=== PATIENT | female | born 1940 | race Caucasian/White ===

== ENCOUNTER 2016-10-16 04:29 | Inpatient (IN) | payer MEDICARE, BC ==
[2016-10-16 06:12] LABS: Glucose,Whole Blood 150 mg/dL (75-99)
[2016-10-16] MEDS ORDERED: ACETAMINOPHEN TAB 325 MG TAB PO PRN (07:02)
[2016-10-16] MEDS ORDERED: SODIUM CHLORIDE 0.9% 1,000 ML IV SCH ×2 (07:15→14:00)
--- NOTE | 2016-10-16 07:34 | XR ---
EXAMINATION TYPE: XR chest 1V portable DATE OF EXAM: 10/16/2016 7:29 AM CLINICAL HISTORY: Difficulty breathing and pneumonia. TECHNIQUE: Single AP portable upright view of the chest is obtained. COMPARISON: Chest x-ray from July 27, 2014 FINDINGS: There is chronic emphysematous change without suspicious focal airspace opacity, pleural e ffusion, or pneumothorax seen bilaterally. There is stable mild cardiomegaly. Osseous structures are demineralized. IMPRESSION: Chronic emphysematous change and mild cardiomegaly without suspicious acute infiltrate
[2016-10-16] MEDS ORDERED: HUMAN PROTHROMBIN COMPLX 500 UNIT/16 ML VIAL IV ONE (07:57)
[2016-10-16 08:01] LABS: Basophils # (A) 0.1 k/uL (0-0.2); Basophils % (A) 0 %; CH 29.2; CHCM 32.7; Eosinophils % (A) 0 %; HCT 30.7 % (34.0-46.0); HDW 2.58; HGB 10.1 gm/dL (11.4-16.0); Luc # (Auto) 0.28; Luc % (Auto) 2; Lymphocytes # (A) 1.7 k/uL (1.0-4.8); Lymphocytes % (A) 10 %; MCH 29.5 pg (25.0-35.0); MCHC 32.8 g/dL (31.0-37.0); MCV 89.8 fL (80.0-100.0); Mean Platelet Volume 7.9; Monocytes # (A) 0.8 k/uL (0-1.0); Monocytes % (A) 5 %; Neutrophils # (A) 13.8 k/uL (1.3-7.7); Neutrophils % (A) 83 %; RBC 3.42 m/uL (3.80-5.40); RDW 13.5 % (11.5-15.5); WBC 16.7 k/uL (3.8-10.6); WBC (Perox) 17.07
[2016-10-16 08:10] LABS: INR 2.8 (<1.1); Prothrombin Time 26.9 sec (9.0-12.0)
[2016-10-16 08:32] LABS: ALT 24 U/L (9-52); AST 19 U/L (14-36); Alkaline Phosphatase 62 U/L (38-126); Anion Gap 11 mmol/L; Blood Urea Nitrogen 30 mg/dL (7-17); Calcium 9.2 mg/dL (8.4-10.2); Carbon Dioxide 26 mmol/L (22-30); Chloride 102 mmol/L (98-107); Glucose 137 mg/dL (74-99); Magnesium 2.4 mg/dL (1.6-2.3); Non-African American GFR(MDRD) 59 (>60 ml/min/1.73 sqM); Potassium 3.5 mmol/L (3.5-5.1); Sodium 139 mmol/L (137-145); Total Bilirubin 0.4 mg/dL (0.2-1.3); Total Protein 6.4 g/dL (6.3-8.2)
[2016-10-16 08:48] LABS: Creatine Kinase MB 1.1 ng/mL (0.0-2.4)
[2016-10-16 08:54] LABS: Troponin I 0.051 ng/mL (0.000-0.034)
[2016-10-16] MEDS ORDERED: NITROGLYCERIN SL TABS 0.4 MG TAB SUBLINGUAL PRN (09:28)
[2016-10-16] MEDS ORDERED: MORPHINE SULFATE 4 MG/ML SYRINGE IVP PRN (09:45)
[2016-10-16] MEDS ORDERED: ASPIRIN 81 MG CHEW PO STA (10:05)
[2016-10-16] MEDS ORDERED: DIGOXIN 62.5 MCG TAB PO ONE (10:05)
[2016-10-16] MEDS ORDERED: GABAPENTIN 300 MG CAP PO STA (10:06)
[2016-10-16] MEDS ORDERED: FAMOTIDINE 20 MG TAB PO STA (10:06)
[2016-10-16] MEDS ORDERED: LEVOTHYROXINE 100 MCG TAB PO ONE (10:09)
[2016-10-16] MEDS ORDERED: DIGOXIN 125 MCG TAB PO ONE (10:15)
[2016-10-16] MEDS ORDERED: ONDANSETRON 4 MG/2 ML VIAL ONE (13:48)
[2016-10-16 14:10] LABS: Glucose,Whole Blood 386 mg/dL (75-99)
[2016-10-16] MEDS ORDERED: NOREPINEPHRIN 4 MG-0.9% NS PMX 4 MG/250 ML ML IV ONE (14:12)
[2016-10-16 15:15] LABS: ABG Base Excess -5.3 mmol/L; ABG HCO3 19 mmol/L (21-25); ABG PCO2 32 mmHg (35-45); ABG PH 7.38 (7.35-7.45); ABG PO2 114 mmHg (83-108); ABG TCO2 20 mmol/L (19-24)
[2016-10-16] MEDS ORDERED: PROPOFOL 50 ML IV ONE ×2 (15:24→16:20)
[2016-10-16] MEDS ORDERED: EPINEPHrine 2 MG in DEXTROSE 5% IN WATER 250 ML IV SCH ×2 (15:30)
[2016-10-16 15:43] LABS: Basophils # (A) 0.1 k/uL (0-0.2); Basophils % (A) 0 %; CH 29.2; Eosinophils % (A) 0 %; HDW 2.66; Luc # (Auto) 0.27; Luc % (Auto) 2; Lymphocytes # (A) 2.4 k/uL (1.0-4.8); Lymphocytes % (A) 16 %; MCH 29.8 pg (25.0-35.0); MCHC 32.6 g/dL (31.0-37.0); MCV 91.6 fL (80.0-100.0); Mean Platelet Volume 8.7; Monocytes # (A) 0.9 k/uL (0-1.0); Monocytes % (A) 6 %; Neutrophils # (A) 11.1 k/uL (1.3-7.7); Neutrophils % (A) 75 %; RBC 2.05 m/uL (3.80-5.40); RDW 13.2 % (11.5-15.5); WBC 14.7 k/uL (3.8-10.6); WBC (Perox) 14.34
[2016-10-16 15:47] LABS: HCT 18.8 % (34.0-46.0); HGB 6.1 gm/dL (11.4-16.0)
[2016-10-16] MEDS ORDERED: EMPTY BAG 1 BAG with HUMAN PROTHROMBIN COMPLX 2,000 UNIT IV ONE (15:49)
[2016-10-16 15:52] LABS: Calcium 7.9 mg/dL (8.4-10.2); Potassium 3.9 mmol/L (3.5-5.1); Total Bilirubin 0.4 mg/dL (0.2-1.3); Total Protein 4.5 g/dL (6.3-8.2)
[2016-10-16 15:53] LABS: ABG Base Excess -13.1 mmol/L; ABG HCO3 12 mmol/L (21-25); ABG PCO2 25 mmHg (35-45); ABG PO2 217 mmHg (83-108); ABG TCO2 13 mmol/L (19-24)
[2016-10-16 15:55] LABS: Glucose,Whole Blood 490 mg/dL (75-99)
[2016-10-16] MEDS ORDERED: NALOXONE 0.4 MG/ML 1 ML VIAL IV PRN (15:59)
[2016-10-16 16:08] LABS: Creatine Kinase MB 1.5 ng/mL (0.0-2.4)
[2016-10-16 16:12] LABS: Troponin I 0.177 ng/mL (0.000-0.034)
[2016-10-16] MEDS ORDERED: RX INFO: IV CONTRAST WAS GIVEN 1 EACH MISC MISCELLANE PRN (16:14)
[2016-10-16] MEDS ORDERED: NOREPINEPHRIN 16 MG-0.9%NS PMX 16 MG/250 ML ML IV SCH (16:30)
[2016-10-16] MEDS ORDERED: HUMAN PROTHROMBIN COMPLX IV ONE (16:30)
[2016-10-16] MEDS ORDERED: PIPERACILLIN-TAZOBACTAM 3.375 GM in DEXTROSE/WATER 1 50ML.BAG IVPB SCH (16:30)
--- NOTE | 2016-10-16 16:30 | XR ---
EXAMINATION TYPE: XR chest 1V portable DATE OF EXAM: 10/16/2016 4:06 PM Comparison: 10/16/2016 Clinical History: 76-year-old female copd, pulmonary nodules Findings: Markedly rightward rotated exam limiting evaluation casting increased density over the right hemithor ax. Heart appears normal size. Relative upper lung lucency suggests underlying emphysema. No definite consolidation or significant pleural effusion. Impression: COPD. Limited rotated exam. No definite acute change.
[2016-10-16] MEDS: IPRATROPIUM-ALBUTEROL 3 ML NEB INHALATION SCH ×3 (16:31→23:40)
--- NOTE | 2016-10-16 16:36 | P.CNPUL ---
History of Present Illness Consult date: 10/16/16 Chief complaint: Shock History of present illness: I was asked to immediately attended on this patient by the hospitalist because of episodes of loss of consciousness, hypotension and shock. This patient is 76 and she was admitted initially to [facility] for an acute COPD exacerbation. She was receiving treatment there for the same. Subsequently, a computed tomography scan of the chest was done that showed and the raises suspicion for a liver mass and for that reason the patient was admitted to [facility]. Initially she was brought into the ICU as a selective overflow. She was under the care of the hospitalist. Later on this afternoon the patient started having episodes of profound hypotension with her systolic blood pressure will drop down to the 40s and she become briefly unconscious. At the time of my evaluation, the patient was quite hypotensive with a systolic blood pressure in the mid 70s. Immediately a triple lumen catheter was established in the right femoral vein and the patient was started on IV fluids and pressors. As the suspicion was being conducted, the patient had another episode where she massively dropped her blood pressure down to the mid 40s and she became unresponsive. Immediately, epinephrine 1 mg was injected and the blood pressure was restored along with the circulation the pulse. However she would subsequently dropped her systolic blood pressure to the mid 40s again. The effect of his medication would last only for a few minutes and then resolved. At that point, the patient was started on epinephrine drip in conjunction with norepinephrine infusion and bolus infusions of currently running at 50 mics. A rapid stat CBC showed a 4 g drop in hemoglobin and the most his hemoglobin is down to 6.1. Kcentra was ordered regarding the coagulopathy to reverse her INR immediately that was at 2.8. A stat blood gases obtained that showed a mild metabolic acidosis with a pH of 7.3 with a pCO2 of 25 and pO2 of 217 and this blood gases were done as the patient was intubated on a assist-control mode of ventilation at the rate of 24, tidal volume 500, FiO2 100% and a PEEP of 5. Patient's lactic acid level came up to 6.0. NG tube was inserted and there was no evidence of any bleeding. In addition the patient did not show any signs of active bleed. Abdomen was nondistended. Noted prior to all these events occurring she was complaining of right upper quadrant pain . During this is a station there was no abdominal distention noted. A postintubation chest x-ray showed evidence of any free air under the diaphragm. Flat some of the abdomen showed no specific gas pattern. The patient had normal amylase lipase and normal liver function tests. There was evidence of a minor troponin leak that was noted which is not significant and not pertinent to the ongoing events. The CAT scan of the chest that was done at [facility] showed a questionable right upper quadrant mass/hepatic mass/ pancreatic mass. Possibility of abscess or a perforated viscus is being currently contemplated. The patient is postcholecystectomy. She is post appendectomy. Oma was updated regarding the above-mentioned events. Note that the patient also has had a previous abdominal aortic aneurysm that has been repaired many years back by Dr. Tineo and she has many issues since. Review of Systems ROS unobtainable: due to endotracheal tube Past Medical History Past Medical History: Coronary Artery Disease (CAD), COPD, GERD/Reflux, Hyperlipidemia, Hypertension, Thyroid Disorder Additional Past Medical History / Comment(s): COPD, coronary artery disease, abdominal aortic aneurysm repair, breast cancer with previous right mastectomy followed by radiation therapy and thousand and 6, chronic atrial fibrillation maintained on long-term anticoagulation with warfarin, macular degeneration, chronic sinus disease, hypothyroidism, hyperlipidemia, acid reflux, hypertension History of Any Multi-Drug Resistant Organisms: None Reported Past Surgical History: Cholecystectomy, Hysterectomy, Tubal Ligation Additional Past Surgical History / Comment(s): triple A repair 2007, Right breast lumpectomy, repair bowel obstruction Past Anesthesia/Blood Transfusion Reactions: No Reported Reaction Past Psychological History: No Psychological Hx Reported Smoking Status: Former smoker Past Alcohol Use History: None Reported Past Drug Use History: None Reported Medications and Allergies Home Medications Medication Instructions Recorded Confirmed Type Furosemide [Lasix] 40 mg PO DAILY 07/27/14 10/16/16 History Gabapentin [Neurontin] 300 mg PO TID 07/27/14 10/16/16 History Levothyroxine Sodium [Synthroid] 100 mcg PO DAILY 07/27/14 10/16/16 History Potassium Chloride [Klor-Con 10] 10 meq PO DAILY 07/27/14 10/16/16 History Simvastatin [Zocor] 40 mg PO HS 07/27/14 10/16/16 History amLODIPine [Norvasc] 5 mg PO HS 07/27/14 10/16/16 History Aspirin 81 mg PO DAILY 10/16/16 10/16/16 History Calcium Carbonate/Vitamin D3 1 tab PO TID 10/16/16 10/16/16 History [Calcium 500-Vit D3 600 Tablet] Digoxin [Lanoxin] 62.5 mcg PO DAILY 10/16/16 10/16/16 History Fluticasone Propionate [Flonase 1 spray EA NOSTRIL DAILY 10/16/16 10/16/16 History Allergy Relief] Losartan [Cozaar] 50 mg PO DAILY 10/16/16 10/16/16 History Magnesium Chloride [Slow Mag] 128 mg PO DAILY 10/16/16 10/16/16 History Nitroglycerin Sl Tabs [Nitrostat] 0.4 mg SUBLINGUAL Q5M PRN 10/16/16 10/16/16 History [place]-3 Fatty Acids/Fish Oil [Fish 1 cap PO BID 10/16/16 10/16/16 History Oil 1,000 mg Softgel] Ranitidine HCl 150 mg PO DAILY 10/16/16 10/16/16 History Vit A,C & E/Lutein/Minerals 1 tab PO BID 10/16/16 10/16/16 History [Ocuvite with Lutein Tablet] Warfarin Sodium [Coumadin] 4 mg PO MOWEFRSA 10/16/16 10/16/16 History Warfarin Sodium [Coumadin] 6 mg PO SUTUTH 10/16/16 10/16/16 History Allergies Allergy/AdvReac Type Severity Reaction Status Date / Time diltiazem [From [facility]] Allergy Unknown Verified 10/16/16 08:04 Physical Exam Vitals: Vital Signs Temp Pulse Pulse Resp BP BP Pulse Ox 10/16/16 12:00 81 17 10/16/16 08:00 98.2 F 76 81 17 140/68 96 10/16/16 06:46 97.7 F 81 25 H 105/73 93 L 10/16/16 05:58 105/73 Intake and Output 10/16/16 10/16/16 10/16/16 06:59 14:59 22:59 Other: Voiding Method Bedside Commode Bedside Commode Weight 82.6 kg Intubated on a mechanical ventilator and calm and comfortable. Nonacute distress.Head exam was generally normal. There was no scleral icterus or corneal arcus. Mucous membranes were moist.Neck was supple and without jugular venous distension, thyromegaly, or carotid bruits. Carotids were easily palpable bilaterally. There was no adenopathy. Patient has an orogastric and orotracheal tube are both in place. Lung sounds are diminished bilaterally otherwise clear. No wheezes or rhonchi any crackles.Cardiac exam revealed the PMI to be normally situated and sized. The rhythm was regular and no extrasystoles were noted during several minutes of auscultation. The first and second heart sounds were normal and physiologic splitting of the second heart sound was noted. There were no murmurs, rubs, clicks, or gallops. Preintubation the patient had a right upper quadrant direct tenderness. At this point in time bowel sounds are hypoactive. No abdominal distention. No hepatosplenomegaly. No rebound tenderness. No guarding. Extremities show no edema and there is diminished pulses in all 4 extremities symmetrically the extremities are cold and clammy.. No cyanosis. No clubbing. Neurologically, the patient sedated and calm and comfortable. Results - Laboratory Findings CBC and BMP: 10/16/16 15:15 10/16/16 15:15 ABG ABG pH 7.30 (7.35-7.45) L 10/16/16 15:45 ABG pCO2 25 mmHg (35-45) L 10/16/16 15:45 ABG pO2 217 mmHg (83-108) H 10/16/16 15:45 ABG O2 Saturation 100.0 % (94-97) H 10/16/16 15:45 PT/INR, D-dimer PT 26.9 sec (9.0-12.0) H 10/16/16 07:41 INR 2.8 (<1.1) 10/16/16 07:41 Abnormal lab findings: Abnormal Labs 10/16/16 10/16/16 10/16/16 06:10 07:41 07:41 WBC 16.7 H RBC 3.42 L Hgb 10.1 L Hct 30.7 L Neutrophils # 13.8 H PT 26.9 H ABG pH ABG pCO2 ABG pO2 ABG HCO3 ABG Total CO2 ABG O2 Saturation ABG Lactic Acid Sodium Carbon Dioxide BUN Creatinine Glucose POC Glucose (mg/dL) 150 H Calcium Magnesium Troponin I Total Protein Albumin 10/16/16 10/16/16 10/16/16 07:41 07:41 14:04 WBC RBC Hgb Hct Neutrophils # PT ABG pH ABG pCO2 ABG pO2 ABG HCO3 ABG Total CO2 ABG O2 Saturation ABG Lactic Acid Sodium Carbon Dioxide BUN 30 H Creatinine Glucose 137 H POC Glucose (mg/dL) 386 H Calcium Magnesium 2.4 H Troponin I 0.051 H* Total Protein Albumin 10/16/16 10/16/16 10/16/16 15:08 15:15 15:15 WBC 14.7 H RBC 2.05 L Hgb 6.1 L* D Hct 18.8 L* Neutrophils # 11.1 H PT ABG pH ABG pCO2 32 L ABG pO2 114 H ABG HCO3 19 L ABG Total CO2 ABG O2 Saturation 99.0 H ABG Lactic Acid Sodium Carbon Dioxide BUN Creatinine Glucose POC Glucose (mg/dL) Calcium Magnesium Troponin I 0.177 H* Total Protein Albumin 10/16/16 10/16/16 10/16/16 15:15 15:15 15:45 WBC RBC Hgb Hct Neutrophils # PT ABG pH 7.30 L ABG pCO2 25 L ABG pO2 217 H ABG HCO3 12 L ABG Total CO2 13 L ABG O2 Saturation 100.0 H ABG Lactic Acid 6.0 H* Sodium 136 L Carbon Dioxide 20 L BUN 28 H Creatinine 1.15 H Glucose 351 H POC Glucose (mg/dL) Calcium 7.9 L Magnesium Troponin I Total Protein 4.5 L Albumin 2.3 L 10/16/16 15:52 WBC RBC Hgb Hct Neutrophils # PT ABG pH ABG pCO2 ABG pO2 ABG HCO3 ABG Total CO2 ABG O2 Saturation ABG Lactic Acid Sodium Carbon Dioxide BUN Creatinine Glucose POC Glucose (mg/dL) 490 H Calcium Magnesium Troponin I Total Protein Albumin - Diagnostic Findings Chest x-ray: image reviewed Assessment and Plan Plan: Assessment 1 acute shock with massive hemodynamic collapse. The exact etiology is not clear. Rule out perforated viscus/intra-abdominal source of sepsis. Rule out abdominal aortic aneurysm complication including dissection special with a 4 g drop in hemoglobin. Noted the patient was having right upper quadrant pain prior to her going into shock phase and the CAT scan of the chest that was done at [facility] showed right upper quadrant abnormalities, questionable liver mass versus pancreatic mass. This could've been also an inflammatory collection/abscess. A stat ultrasound of the abdomen was done at the bedside showed free fluid within the abdomen and the visibility was essentially not clear. 2 acute respiratory failure secondary to above 3 acute anemia with drop in hemoglobin 4 sinus tachycardia secondary to above 5 paroxysmal atrial fibrillation maintained on long-term articulation with Coumadin with the most recent INR 2.8 6 lactic acidosis 7COPD 8 coronary artery disease with minor troponin leak, nonspecific 9 about it and resume. 10 breast cancer with previous mastectomy followed by radiation therapy in 2005 11 macular degeneration 12 hypothyroidism 13 hyperlipidemia 14 acid reflux Plan Unfortunately because of the massive hemodynamic collapse and shock state is not clear to me. I think we are either dealing with a either a hypovolemic shock probably due to blood loss/complications of aneurysm of the abdominal aorta, or complications of sepsis, bowel perforation, intra-abdominal abscess formation. As such, the patient will be assisted aggressively with IV fluids and she is on wide-open saline infusion right now and she'll be receiving packed RBC transfusion and the coagulopathy will be reversed. The patient will be sent for a stat CAT scan of the chest abdomen and pelvis. The patient will be kept intubated on mechanical ventilator and the pressors will be used to support hemodynamics and the patient is currently on a combination of epinephrine and norepinephrine infusion. Cover the patient with IV Zosyn. Continue vent support. Condition is critical. Consult with general surgery. We'll make further recommendations based on the CAT scan findings. Time with Patient: Greater than 30
--- NOTE | 2016-10-16 16:39 | XR ---
EXAMINATION TYPE: XR abdomen 1V DATE OF EXAM: 10/16/2016 4:14 PM CLINICAL DATA: 76-year-old female post intubation, possible bleed, [facility] COMPARISON: None FINDINGS: An NG tube courses below the diaphragm. Cholecystectomy clips are present. Surgical clips within the pelvis. There is focal cecal dilatation of 10.6 cm in the right lower quadrant. Scattered air seen wi thin the colon distally into the rectum. IMPRESSION: Nonspecific air distention of the cecum measuring 10.6 cm. Follow-up recommended. NG tube is down in the stomach.
[2016-10-16] MEDS: PROPOFOL 500 MG in EMPTY BAG 1 BAG IV SCH ×2 (16:43→20:23)
--- NOTE | 2016-10-16 16:51 | US ---
EXAMINATION TYPE: US duplex aorta DATE OF EXAM: 10/16/2016 4:21 PM COMPARISON: NONE CLINICAL HISTORY: 76-year-old female AAA. History of aortic repair 2007. Patient coded twice. TECHNIQUE: Multiple sonographic images of the abdominal aorta are obtained. FINDINGS: RATE EXAMINER NOTES: Limited exam due to overlying bowel gas. Moderate amount of fluid seen in pelvis . EXAM MEASUREMENTS: Abdominal Aorta: Proximal: 2.5 x 2.4 cm Mid: not seen due to overlying bowel gas Distal: not seen due to overlying bowel gas Bifurcation: not seen due to overlying bowel gas IMPRESSION: Limited exam. Only the upper abdominal aorta is visible, ectatic at 2.5 cm. There is moderate free fl uid seen within the pelvis. Clinical correlation recommended.
--- NOTE | 2016-10-16 16:59 | XR ---
EXAMINATION TYPE: XR chest 1V portable DATE OF EXAM: 10/16/2016 4:14 PM Comparison: Earlier today Clinical History: 76 year-old female tube placement Findings: The janice is not well seen. ET tube tip is estimated at 2 cm from the janice. NG tube courses below the diaphragm. Heart remains upper limits of normal in size. Underlying emphysematous change. No new consolidation, pneumothorax, or pleural effusion identified. Impression: 1. ET tube tip estimated at 2 cm from the janice. The janice is not well seen. Attention on follow-up . 2. No definite acute cardiopulmonary process. Mild underlying emphysema.
[2016-10-16] MEDS ORDERED: EPINEPHrine 4 MG in DEXTROSE 5% IN WATER 250 ML IV SCH ×4 (17:07→18:00)
--- NOTE | 2016-10-16 17:24 | PCN ---
DATE OF PROCEDURE: PREOPERATIVE DIAGNOSIS: Shock. POSTOPERATIVE DIAGNOSIS: Shock. PROCEDURE PERFORMED: Intubation. ENDOTRACHEAL INTUBATION Indication: Respiratory compromise. A time-out was completed verifying correct patient, procedure, site, positioning, and implant(s) or special equipment if applicable. The patient was positioned appropriately and a #8 endotracheal tube was placed under direct laryngoscopy. The tube was anchored at 22 cm at the teeth. Correct placement was confirmed by presence of bilateral breath sounds without air sounds in the abdomen on auscultation. An end-tidal CO2 monitor was also used to confirm tracheal placement of the ET tube. A chest x-ray was ordered to assess for pneumothorax and verify endotracheal tube placement. The patient tolerated the procedure well and there were no complications. #4 Read blade was used to intubate the patient. No bedside complications or bleeding.
--- NOTE | 2016-10-16 17:26 | PCN ---
DATE OF PROCEDURE: TRIPLE LUMEN CATHETER PLACEMENT Indication: Hemodynamic monitoring/Intravenous access. A time-out was completed verifying correct patient, procedure, site, positioning, and implant(s) or special equipment if applicable. The patient was placed in a dependent position appropriate for triple lumen catheter placement based on the vein to be cannulated. The patient's right groin was prepped and draped in sterile fashion. 1% Lidocaine was used to anesthetize the surrounding skin area. A triple lumen 9F Cordis catheter was introduced into the common femoral vein using Seldinger technique. The catheter was threaded smoothly over the guide wire and appropriate blood return was obtained. Each lumen of the catheter was evacuated of air and flushed with sterile saline. The catheter was then sutured in place to the skin and a sterile dressing applied. Perfusion to the extremity distal to the point of catheter insertion was checked and found to be adequate. No bedside complications or bleeding.
--- NOTE | 2016-10-16 17:28 | PCN ---
DATE OF PROCEDURE: ARTERIAL LINE PLACEMENT Indication: Hemodynamic monitoring. A time-out was completed verifying correct patient, procedure, site, positioning, and implant(s) or special equipment if applicable. Yousif's test was performed to ensure adequate perfusion. The patient's right wrist was prepped and draped in sterile fashion. 1% Lidocaine was used to anesthetize the area. An 18G Arrow arterial line was introduced into the radial artery. The catheter was threaded over the guide wire and the needle was removed with appropriate pulsatile blood return. Blood loss was minimal. The catheter was then sutured in place to the skin and a sterile dressing applied. Perfusion to the extremity distal to the point of catheter insertion was checked and found to be adequate. The patient tolerated the procedure well and there were no complications. No bedside complications or bleeding.
[2016-10-16] MEDS ORDERED: WARFARIN 3 MG TAB PO SCH (18:00)
--- NOTE | 2016-10-16 18:09 | HP ---
DATE OF ADMISSION: 10/16/2016 There are multiple events that happened since her admission today morning in transfer from [facility] which patient was initially sent in here for evaluation by cardiology because of minimally elevated troponin 0.05 and patient was being treated for COPD exacerbation there and the patient chest x-rays and CTs were reviewed from the other hospital. Patient initially was there what appears to be for three or four days. Patient had leukocytosis there and patient was being treated for community acquired pneumonia with ceftriaxone and azithromycin, although patient's chest x-ray showed some atelectasis. No significant pneumonic infiltrate although it was read as there may be aspiration pneumonia and the patient on systemic steroids, inhalational treatments and patient is also on Coumadin for atrial fibrillation. He is on Coumadin and the patient INR is 2.8 today when she came in. Patient was doing clinically okay except for her complaints of epigastric abdominal pain and right upper quadrant abdominal pain. Patient had a CT angiogram of the chest yesterday which was suspicious for pulmonary nodule which is not apparent as per sales clerk here. Patient has a suspicious mass in the which is not very obvious because it is a CT of the chest in the liver area. My plan is to get a CT of the abdomen tomorrow. Those orders were placed when I the left the room. Shortly after I left the room, patient complained about pain in the clavicle area and the patient all of a sudden became unresponsive with normal pulse temporarily and was awake after that and patient did not undergo cardiopulmonary resuscitation. Patient has a pulse at that time and patient was sinus rhythm. Subsequently, patient sinus rhythm converted to sinus tachycardia. Almost about an hour later patient became unresponsive, systolic blood pressure dropped down to 60s. Patient was emergently intubated and IV central access was obtained and the patient arterial line was placed. Blood pressure dropped down to 40s and patient was maximized on Levophed and epinephrine, norepinephrine and epinephrine. No obvious etiology for these events although it was found the patient has abdominal aortic aneurysm, which was repaired years ago. The patient was later found to have 4 gm drop in hemoglobin. Suspicion was intra-abdominal bleed. ( ) was given. We got an emergent ultrasound of the abdomen which showed free fluid in the pelvis. INR was 2.8. Leukocytosis improved with repeat labs, although her lactic acid jumped up to 6 with worsening creatinine and patient received so far 5 liters of aggressive liter saturation. Patient is still undergoing aggressive resuscitation and aggressive fluid resuscitation and we are trying to get an emergent CT of the abdomen and of the chest. Patient is fairly relatively stabilized now because of which we are going to get a CT of the abdomen to see if that is any abdominal intra-abdominal bleed or abdominal aortic aneurysmal rupture for further management. Case was discussed with the surgeon as well. Patient was empirically started on Zosyn. PAST MEDICAL HISTORY: Coronary artery disease, COPD, gastroesophageal reflux disease, hyperlipidemia, hypertension, hyperthyroidism, cholecystectomy, hysterectomy, tubal ligation surgery. SOCIAL HISTORY: Former smoker. Denied any alcohol abuse or drug abuse. FAMILY HISTORY: Not available and not relevant at this point in time. Medications include: 1. Lasix. 2. Gabapentin. 3. Levothyroxine. 4. Potassium chloride. 5. Simvastatin. 6. Amlodipine. 7. Aspirin. 8. Calcium carbonate. 9. Digoxin. 10. Fluticasone. 11. Losartan. All of which are being held now because of these acute events. Software Test Manager tried to evaluate the patient in the meantime. He did not get a chance because of these multiple acute events. As of now we will go ahead and discontinue Cardiology consult. Troponin is elevated due to demand ischemia and significant hemoglobin drop. All these events were discussed extensively with the family members. REVIEW OF SYSTEMS: Unable to obtain and initially when I obtained review of systems, there were are all negative. PHYSICAL EXAMINATION: Temperature 98.2, pulse of 76, respiratory rate of 17. Blood pressure 140/68, saturating at 96% on 2 liters O2 by nasal cannula. Patient did do multiple physical examinations during the course of these events. Initially physical exam: GENERAL: The patient is alert and oriented x3, not in any acute distress. Well developed, well nourished. HEENT: Pupils are round and equally reacting to light. EOMI. No scleral icterus. No conjunctival pallor. Normocephalic, atraumatic. No pharyngeal erythema. No thyromegaly. CARDIOVASCULAR: S1 and S2 present. No murmurs, rubs, or gallops. PULMONARY: Patient has mildly decreased air entry into bilateral lung vargas. No other abnormality was appreciated. Patient was only on 2 liters of oxygen when she came in here. Saturating 96% now. Patient looked significantly pale. Patient is quite tachycardic on exam. No JVD. Patient is sedated, on propofol and intubated, sedated, now. Please refer to sales clerk dictation for vent settings. ABDOMEN: Soft, nontender, nondistended, normoactive bowel sounds. No palpable organomegaly. MUSCULOSKELETAL: No joint swelling or deformity. EXTREMITIES: No cyanosis, clubbing, or pedal edema. NEUROLOGICAL: Gross neurological examination did not reveal any focal deficits. SKIN: No rashes. Patient's ABG showed pH of 7.3, PCO2 25. Patient has metabolic acidosis with partial compensation of from respiratory alkalosis. Patient is going for a CT of the abdomen. Other lab data as mentioned above. ASSESSMENT AND PLAN: 1. Acute shock appears to be hypovolemic shock although sepsis cannot be ruled out. Patient will be on empiric antibiotics. Patient has a significant drop in hemoglobin, aggressive IV fluid resuscitation. We will go ahead and given her at least 2 units of blood transfusion. Patient may require more and emergent CT of the abdomen is being obtained and surgical services notified, the etiology, the patient is undergoing further evaluation to find etiology about this acute hemodynamic collapse or hemorrhagic shock. 2. Acute hypoxic respiratory failure secondary to shock; significant drop in hemoglobin or acute blood loss anemia, further evaluation as mentioned above. 3. Coumadin coagulopathy. 4. Paroxysmal atrial fibrillation. 5. Lactic acidosis due to shock. 6. Coronary artery disease. 7. Elevated troponin secondary to demand ischemia. 8. Breast cancer with previous mastectomy. 9. Hypothyroidism. 10. Hyperlipidemia. PLAN: As mentioned above. Patient has massive hemodynamic collapse. So far, I spent more than 120 minutes still at the bedside in further managing the patient. Update will be redictated as a progress note. MTDD
--- NOTE | 2016-10-16 18:48 | CT ---
EXAMINATION TYPE: CT angio thoracic/abd aorta DATE OF EXAM: 10/16/2016 5:58 PM COMPARISON: Correlation outside CT chest 10/15/2016 HISTORY: 76-year-old female rule out abdominal aortic aneurysm rupture. TECHNIQUE: Contiguous axial scanning of the chest, abdomen, and pelvis performed before and after adm inistration of 80 mL Visipaque 320 IV contrast. Coronal and sagittal MIP reconstructions performed. 3 -D reconstructions generated on a dedicated independent workstation. CT DLP: 2156.5 mGycm Automated exposure control for dose reduction was used. FINDINGS: VASCULATURE: Ascending aorta is normal caliber. There are mild atherosclerotic arch calcifications and conventiona l branching anatomy. There is borderline ectasia of the upper descending thoracic aorta 3.0 cm with scattered moderate ath erosclerotic plaque and calcifications. There is ectasia of the lower descending thoracic aorta at 2. 9 cm. No evidence for acute intramural hematoma. There is moderate hemoperitoneum with combination of low and high density ascites around the liver an d spleen. The suspected origin of hemorrhage is a 1.7 x 1.2 cm pseudoaneurysm at the level of the pro per hepatic artery bifurcation, axial image 54 and coronal medic image 19. There is apparent narrowing of the proximal common hepatic artery, axial image 52 of uncertain etiolo gy. There is high density hemorrhagic fluid in the region of the tammy hepatis. There is prior stent graft of AAA. The algaaciq sac measures 3.3 cm without any evidence for leak. Ectasia of 1.5 cm of the right common iliac artery with moderate atherosclerotic calcifications. Moderate hemorrhagic ascites collects within the pelvis. CHEST: ET tube and NG tube are present. The heart is normal size without pericardial effusion. Coronary vessel calcifications are present in remarkable for coronary artery disease. There is borderline to enlarged caliber of the right and left main pulmonary arteries at 2.5 and 2.8 cm, relatively, suggesting underlying pulmonary arterial hypertension. No thoracic lymphadenopathy. Evaluation of the lungs shows biapical pleural-parenchymal scarring and some additional scattered str augusto atelectasis and scarring. Mild diffuse bronchial wall thickening is noted. Some patchy interstit ial changes at the right base could reflect additional scarring. No fabio consolidation or pleural ef fusion. There is a 1.5 cm pulmonary nodule at the right infrahilar region, axial image 24 which should be anupama ssessed on follow-up. ABDOMEN: Cholecystectomy clips. Adrenal glands and right kidney appear within normal limits. There is a subcentimeter hypodensity upp er pole left kidney likely cyst. Hemorrhagic fluid surrounds portions of the pancreas limiting its ev aluation and also makes clear assessment of the spleen difficult. No mesenteric or retroperitoneal lymphadenopathy. Martines catheter decompresses the bladder. BONES: Degenerative changes at the hips and levoconvex degenerative scoliosis. IMPRESSION: 1. MODERATE HEMORRHAGIC ASCITES WITH MIXED DENSITY HEMORRHAGIC FLUID INCLUDING ACUTE HEMORRHAGE. THIS IS SIGNIFICANTLY INCREASED FROM THE OUTSIDE CT OF 10/15/2016. 2. 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 NOTE APPARENT NARROWING OF THE PROXIMAL COMMON HEPATIC ARTERY; THE RE MAY BE SPASM OR STRICTURE HERE. 3. PRIOR STENT GRAFTING OF PATIENT'S AAA. THE POARCH SAC MEASURES 3.3 CM WITHOUT LEAK. 4. A 1.5 CM RIGHT INFRAHILAR PULMONARY NODULE. RECOMMEND 3 MONTH FOLLOW-UP EXAM TO REASSESS AND EXCLU DE NEOPLASM. Critical findings called to nurse Puga on 6-ICU at 6:30 PM following immediately by phone call to Dr. Mcdermott.
[2016-10-16] MEDS ORDERED: PHYTONADIONE 5 MG in SODIUM CHLORIDE 0.9% 50 ML IVPB STA (19:00)
[2016-10-16 19:31] VITALS: BP 75/44; RESP 24; TEMP 97.4
--- NOTE | 2016-10-16 20:12 | DS ---
DATE OF ADMISSION: 10/16/2016 DATE OF DISCHARGE: Please refer to my dictation of H&P for further details of hospital course. This is the discharge summary. the patient is being transferred to [facility] for further management and higher level of care. Patient will be air lifted for that. The patient today had hemodynamic stability and hemorrhagic shock. Once she stabilized, we were able to get CT of the abdomen which showed moderate hemorrhagic ascites ( ) hemorrhagic fluid including acute hemorrhage along with 1.7 x 1.2 cm pseudoaneurysm in the distal ( ) hepatic artery near its bifurcation at Portahepatus. There was also prior abdominal aortic aneurysm which is stable at this point of time where there is a stent grafting. Patient will be further hemodynamically further stabilized and the patient received ( ) and the patient will be given fresh frozen plasma along with Vitmain K, two more units of ( ) transfusion totaling 4 units of blood transfusion before we air lift her to [facility]. Discussed with surgical ICU attending who will accept the patient is surgical ICU, with vascular surgery and internal medicine consult. For further details of hospital course management, please refer to my dictation of H&P.
[2016-10-16] MEDS: GABAPENTIN 300 MG CAP PO SCH ×2 (20:23→22:50)
[2016-10-16] MEDS ORDERED: amLODIPine 5 MG TAB PO SCH (21:00)
[2016-10-16] MEDS ORDERED: AMOXIC-POT CLAV 875-125MG 1 EACH TAB PO SCH (21:00)
[2016-10-16] MEDS ORDERED: PANTOPRAZOLE 40 MG/10 ML VIAL IVP SCH (21:00)
[2016-10-16] MEDS ORDERED: ATORVASTATIN 20 MG TAB PO SCH (21:00)
[2016-10-16] MEDS ORDERED: CHLORHEXIDINE GLUCONATE 15 ML CUP MUCOUS MEM SCH (21:00)
[2016-10-16 23:17] VITALS: PULSE 81
[2016-10-17] MEDS ORDERED: LEVOTHYROXINE 100 MCG TAB PO SCH (06:30)
[2016-10-17] MEDS ORDERED: ASPIRIN 81 MG CHEW PO SCH (09:00)
[2016-10-17] MEDS ORDERED: PANTOPRAZOLE 40 MG/10 ML VIAL IVP SCH (09:00)
[2016-10-17] MEDS ORDERED: FLUTICASONE 50MCG/SPRAY NASAL 16GM EA NOSTRIL SCH (09:00)
[2016-10-17] MEDS ORDERED: FAMOTIDINE 20 MG TAB PO SCH (09:00)
[2016-10-17] MEDS ORDERED: LOSARTAN 50 MG TAB PO SCH (09:00)
[2016-10-17] MEDS ORDERED: predniSONE 20 MG TAB PO SCH (09:00)
[2016-10-17] MEDS ORDERED: DIGOXIN 62.5 MCG TAB PO SCH (09:00)
[2016-10-17] MEDS ORDERED: WARFARIN 2 MG TAB PO SCH (18:00)
--- NOTE | 2016-10-20 10:12 | CDI ---
In responding to this query, please exercise your independent professional judgment. The [facility] Coding Staff and Clinical Documentation Specialists appreciate your assistance in clarifying documentation, maintaining compliance with coding guidelines, accurately documenting patients condition and capturing severity of illness. The fact that a question is asked does not imply that any particular answer is desired or expected. Communication forms are a method of clarifying documentation and are not made part of the Legal Health Record. Thank you in advance for your clarification. Last Revision, August 2015 Moises Barnes [address] [place] [address] Documentation Clarification Form Date: 10/20/2016 9:42:00 AM From: Magaly Freeman [facility] & Gris Suarez, Evaluation Advisor & Deborahs = [phone] Admit Date: 10/16/2016 5:55:00 AM Patient Name: Kanchan Harvey Visit Number: [id number] Discharge Date: 10-17-16 Dr. Alicia Bolaños Please advise if possible, the specificity of acute respiratory failure in this patient. H&P states "acute respiratory failure". History/Risk Factors: History of AAA, repaired. Now hemorrhagic shock, hemorrhagic ascites, pseudoaneurysm of distal hepatic artery, history of atrial fib, acute blood loss anemia, coumadin coagulopathy, demand ischemia, respiratory alkalosis, metabolic and lactic acidosis. Tobacco use: History of Home oxygen: no Vital signs/Pulse oximetry: 93% Lung/Breathing assessment: Respiratory rate up to 33 on 10-16-16 ABG done at 1508 on 10-16-16: pH 7.38 pCO2 32 pHCO3 19 Lactate 6.0 Treatment: nebulizer treated-yes Continuous Pulse ox--O2 sat 93. Vent/BiPap: intubated at 1545. In your professional opinion, can you please clarify if these findings signify one of the following conditions? Acuity: o Acute o Chronic o Acute on Chronic Respiratory Status: o Respiratory failure o Respiratory failure with hypercapnia o Respiratory failure with hypoxia o Acute Respiratory Distress o Other Diagnosis, please specify o Unable to determine Please document in your progress notes and discharge summary in order to capture severity of illness and risk of mortality. Include clinical findings that support your diagnosis. FYI: Press F11 to launch patient chart. Place X here if this finding has no clinical significance, is not applicable or if you are not able to provide any additional documentation. MTDD
--- NOTE | 2016-10-20 10:27 | CDI ---
In responding to this query, please exercise your independent professional judgment. The [facility] Coding Staff and Clinical Documentation Specialists appreciate your assistance in clarifying documentation, maintaining compliance with coding guidelines, accurately documenting patients condition and capturing severity of illness. The fact that a question is asked does not imply that any particular answer is desired or expected. Communication forms are a method of clarifying documentation and are not made part of the Legal Health Record. Thank you in advance for your clarification. Last Revision, April 2015 Moises Barnes [address] [facility] [place] [address] Documentation Clarification Form Date: 10/20/2016 10:13:00 AM From: Magaly Freeman [facility] & Gris Suarez, Logistics Planning Engineer & Pinky [phone] Admit Date: 10/16/2016 5:55:00 AM Patient Name: Kanchan Harvey Visit Number: [id number] Discharge Date: 10-17-[address] [facility] Dr. Alicia Bolaños Please confirm if patient did or did not have pneumonia, mentioned in the H&P and if so, type of pneumonia. Pneumonia was documented in your notes in H&P as "Patient had leukocytosis there (hospital transferred from) and patient was being treated for community acquired pneumonia with Ceftriaxone and Azithromycin, although patient's CXR showed some atelectasis-no sign of pneumatic infiltrate, although it was read as there may be aspiration pneumonia. History/Risk Factors: Patient transferred from [facility]. Treated there for COPD exacerbation, pneumonia, abnormal CT abdomen, leukocytosis, elevated troponin, abdominal pain, possible pulmonary nodule, history of smoking , history of breast cancer and radiation & mastectomy. Now, patient transferred to [facility] for acute hemorrhage, hemorrhagic ascites and pseudoaneursym in distal hepatic artery. History of repaired AAA. Clinical Indicators: WBC = 16.7 X-ray: = see above CXR Lung/Breathing assessment: acute respiratory failure, intubated on at 1545. Treatment: Antibiotics-Yes O2:--see above Breathing Tx: Yes In order to capture the severity of condition, please clarify if the condition signifies and you are treating for: Aspiration Pneumonia, identify if: Due to solids or liquids Due to anesthesia during L/D Due to anesthesia during puerperium Bacterial Pneumonia, specify causal organism (if known) Gram Negative Pneumonia Due to Strep Due to Staph Due to E. Coli Other bacteria (specify) Viral Pneumonia, specify casual organism (if known) Ventilator Associated Pneumonia Healthcare Acquired Pneumonia/Pneumonia, unspecified Unable to determine Link any associated conditions to the pneumonia: Influenza with secondary gram negative pneumonia Sepsis due to pneumonia Acute respiratory failure due to pneumonia Other, please specify Please document in your progress notes and discharge summary in order to capture severity of illness and risk of mortality. Include clinical findings that support your diagnosis. FYI: Press F11 to launch patient chart. __x___ Place X here if this finding has no clinical significance, is not applicable or if you are not able to provide any additional documentation. FABIANO
== END 2016-10-17 00:12 | disposition short-term general hospital (02) | DRG 299 ==
LOC: 6ICU 05:55
PROVIDERS: ADMIT Internal Medicine; ATTEND Internal Medicine
PROC: 0BH17EZ Insertion of Endotracheal Airway into Trachea, Via Natural or Artificial Opening (ICD-10-PCS; principal; 2016-10-16)
PROC: 04HY32Z Insertion of Monitoring Device into Lower Artery, Percutaneous Approach (ICD-10-PCS; 2016-10-16)
PROC: 5A1935Z Respiratory Ventilation, Less than 24 Consecutive Hours (ICD-10-PCS; 2016-10-16)
PROC: 03HY32Z Insertion of Monitoring Device into Upper Artery, Percutaneous Approach (ICD-10-PCS; 2016-10-16)
PROC: 0T9B70Z Drainage of Bladder with Drainage Device, Via Natural or Artificial Opening (ICD-10-PCS; 2016-10-16)
PROC: 0D9670Z Drainage of Stomach with Drainage Device, Via Natural or Artificial Opening (ICD-10-PCS; 2016-10-16)
PROC: 30243K1 Transfusion of Nonautologous Frozen Plasma into Central Vein, Percutaneous Approach (ICD-10-PCS; 2016-10-16)
PROC: 30243N1 Transfusion of Nonautologous Red Blood Cells into Central Vein, Percutaneous Approach (ICD-10-PCS; 2016-10-16)
DX: I72.8 Aneurysm of other specified arteries (principal); R57.8 Other shock; J96.01 Acute respiratory failure with hypoxia; E87.3 Alkalosis; I95.9 Hypotension, unspecified; E87.2 Acidosis; R57.1 Hypovolemic shock; R18.8 Other ascites; I24.8 Other forms of acute ischemic heart disease; J44.1 Chronic obstructive pulmonary disease with (acute) exacerbation; D62 Acute posthemorrhagic anemia; J98.11 Atelectasis; I48.0 Paroxysmal atrial fibrillation; I48.2 Chronic atrial fibrillation; I25.10 Atherosclerotic heart disease of native coronary artery without angina pectoris; T45.515A Adverse effect of anticoagulants, initial encounter; D72.829 Elevated white blood cell count, unspecified; R74.8 Abnormal levels of other serum enzymes; I10 Essential (primary) hypertension; K21.9 Gastro-esophageal reflux disease without esophagitis; E78.5 Hyperlipidemia, unspecified; E03.9 Hypothyroidism, unspecified; H35.30 Unspecified macular degeneration; Z92.3 Personal history of irradiation; Z88.8 Allergy status to other drugs, medicaments and biological substances; Z79.82 Long term (current) use of aspirin; Z87.19 Personal history of other diseases of the digestive system; Z79.51 Long term (current) use of inhaled steroids; Z90.11 Acquired absence of right breast and nipple; Z85.3 Personal history of malignant neoplasm of breast; Z98.51 Tubal ligation status; Z90.49 Acquired absence of other specified parts of digestive tract; Z87.891 Personal history of nicotine dependence; Z79.01 Long term (current) use of anticoagulants; Z79.899 Other long term (current) drug therapy; Z90.710 Acquired absence of both cervix and uterus; Z86.79 Personal history of other diseases of the circulatory system; Z87.09 Personal history of other diseases of the respiratory system; Z87.01 Personal history of pneumonia (recurrent)
CPT/HCPCS: 71010; 71275; 74000; 75635; 80053; 82150; 82550; 82553; 82805; 83605; 83690; 83735; 84484; 85025; 85610; 86850; 86900; 86901; 86920; 87040; 93979; 94002; 94640

== ENCOUNTER 2016-12-08 12:38 | Inpatient (IN) | payer MEDICARE, BC ==
--- NOTE | 2016-12-08 13:04 | ED ---
General Adult HPI - General Chief complaint: Shortness of Breath Stated complaint: Fluid on Lungs-Sent By Time Seen by Provider: 12/08/16 12:45 Source: patient, RN notes reviewed, old records reviewed Mode of arrival: wheelchair Limitations: no limitations - History of Present Illness Initial comments: This is a 76-year-old female yesterday. Patient presents today for evaluation of shortness of breath, mainly exertional shortness of breath. 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 Patient does have history of A. fib denies history of heart failure does have history of COPD but never needed oxygen. Patient denies chest pain. Symptoms only seem to affect her when she is doing activities - Related Data Home Medications Medication Instructions Recorded Confirmed Gabapentin [Neurontin] 300 mg PO TID 07/27/14 12/08/16 Levothyroxine Sodium [Synthroid] 100 mcg PO DAILY 07/27/14 12/08/16 Simvastatin [Zocor] 40 mg PO HS 07/27/14 12/08/16 Calcium Carbonate/Vitamin D3 1 tab PO TID 10/16/16 12/08/16 [Calcium 500-Vit D3 600 Tablet] Digoxin [Lanoxin] 62.5 mcg PO DAILY 10/16/16 12/08/16 Magnesium Chloride [Slow Mag] 128 mg PO DAILY 10/16/16 12/08/16 Nitroglycerin Sl Tabs [Nitrostat] 0.4 mg SUBLINGUAL Q5M PRN 10/16/16 12/08/16 [place]-3 Fatty Acids/Fish Oil [Fish 1 cap PO BID 10/16/16 12/08/16 Oil 1,000 mg Softgel] Ranitidine HCl 150 mg PO BID 10/16/16 12/08/16 Vits A,C,E/Lutein/Minerals 1 tab PO BID 10/16/16 12/08/16 [Ocuvite with Lutein Tablet] Warfarin Sodium [Coumadin] 2 mg PO SUTUTH 10/16/16 12/08/16 Warfarin Sodium [Coumadin] 4 mg PO MOWEFRSA 10/16/16 12/08/16 Ferrous Sulfate [Feosol] 325 mg PO DAILY 12/08/16 12/08/16 Ipratropium Nebulized [Atrovent 0.5 mg INHALATION RT-QID 12/08/16 12/08/16 Nebulized] amLODIPine [Norvasc] 10 mg PO DAILY 12/08/16 12/08/16 Allergies Allergy/AdvReac Type Severity Reaction Status Date / Time diltiazem [From Cardizem] Allergy Unknown Verified 12/08/16 13:07 albuterol AdvReac Rapid Verified 12/08/16 13:07 Heart Rate Review of Systems ROS Statement: Those systems with pertinent positive or pertinent negative responses have been documented in the HPI. ROS Other: All systems not noted in ROS Statement are negative. Past Medical History Past Medical History: Coronary Artery Disease (CAD), COPD, GERD/Reflux, Hyperlipidemia, Hypertension, Thyroid Disorder Additional Past Medical History / Comment(s): COPD, coronary artery disease, abdominal aortic aneurysm repair, breast cancer with previous right mastectomy followed by radiation therapy and thousand and 6, chronic atrial fibrillation maintained on long-term anticoagulation with warfarin, macular degeneration, chronic sinus disease, History of Any Multi-Drug Resistant Organisms: None Reported Past Surgical History: Cholecystectomy, Hysterectomy, Tubal Ligation Additional Past Surgical History / Comment(s): triple A repair 2007, Right breast lumpectomy, repair bowel obstruction Past Anesthesia/Blood Transfusion Reactions: No Reported Reaction Past Psychological History: No Psychological Hx Reported Smoking Status: Former smoker Past Alcohol Use History: None Reported Past Drug Use History: None Reported General Exam Limitations: no limitations General appearance: alert, in no apparent distress Head exam: Present: atraumatic, normocephalic, normal inspection Eye exam: Present: normal appearance, PERRL, EOMI. Absent: scleral icterus, conjunctival injection, periorbital swelling ENT exam: Present: normal exam, mucous membranes moist Neck exam: Present: normal inspection. Absent: tenderness, meningismus, lymphadenopathy Respiratory exam: Present: normal lung sounds bilaterally. Absent: respiratory distress, wheezes, rales, rhonchi, stridor Cardiovascular Exam: Present: regular rate, normal rhythm, normal heart sounds. Absent: systolic murmur, diastolic murmur, rubs, gallop, clicks GI/Abdominal exam: Present: soft, normal bowel sounds. Absent: distended, tenderness, guarding, rebound, rigid Extremities exam: Present: normal inspection, full ROM, normal capillary refill. Absent: tenderness, pedal edema, joint swelling, calf tenderness Back exam: Present: normal inspection Neurological exam: Present: alert, oriented X3, CN II-XII intact Psychiatric exam: Present: normal affect, normal mood Skin exam: Present: warm, dry, intact, normal color. Absent: rash Course Vital Signs 12/08/16 12/08/16 12/08/16 12:40 12:50 13:19 Temperature 98 F Pulse Rate 84 83 Respiratory 24 20 18 Rate Blood Pressure 149/71 164/76 O2 Sat by Pulse 91 L 94 L Oximetry 12/08/16 14:25 Temperature 97.5 F L Pulse Rate 79 Respiratory 18 Rate Blood Pressure 133/63 O2 Sat by Pulse 94 L Oximetry - Reevaluation(s) Reevaluation #1: 12/08/16 13:33 Patient's medical records are reviewed Reevaluation #2: 12/08/16 15:26 Patient feels better, no further breath when she is sitting still EKG Findings - EKG Comments: EKG Findings:: EKG shows sinus rhythm rate of 84, IA 154, QRS 80, QTC 420 Medical Decision Making - Medical Decision Making 76-year-old here with shortness of breath exertional dyspnea, patient is significant right-sided pleural effusion unknown etiology, history of COPD with hypoxia on O2, patient will be admitted for pulmonology evaluation, cardiopulmonary monitoring - Lab Data Result diagrams: 12/08/16 13:15 12/08/16 13:15 Lab Results 12/08/16 12/08/16 12/08/16 Range/Units 13:15 13:15 13:15 WBC 10.3 (3.8-10.6) k/uL RBC 3.35 L (3.80-5.40) m/uL Hgb 9.9 L D (11.4-16.0) gm/dL Hct 29.3 L (34.0-46.0) % MCV 87.6 (80.0-100.0) fL MCH 29.7 (25.0-35.0) pg MCHC 33.8 (31.0-37.0) g/dL RDW 14.8 (11.5-15.5) % Plt Count 353 (150-450) k/uL Neutrophils % 83 % Lymphocytes % 7 % Monocytes % 5 % Eosinophils % 1 % Basophils % 0 % Neutrophils # 8.6 H (1.3-7.7) k/uL Lymphocytes # 0.7 L (1.0-4.8) k/uL Monocytes # 0.5 (0-1.0) k/uL Eosinophils # 0.1 (0-0.7) k/uL Basophils # 0.0 (0-0.2) k/uL Hypochromasia Slight PT (9.0-12.0) sec INR (<1.1) APTT (22.0-30.0) sec Sodium 138 (137-145) mmol/L Potassium 4.1 (3.5-5.1) mmol/L Chloride 99 (98-107) mmol/L Carbon Dioxide 28 (22-30) mmol/L Anion Gap 11 mmol/L BUN 22 H (7-17) mg/dL Creatinine 1.00 (0.52-1.04) mg/dL Est GFR (MDRD) Af Amer >60 (>60 ml/min/1.73 sqM) Est GFR (MDRD) Non-Af 54 (>60 ml/min/1.73 sqM) Glucose 98 (74-99) mg/dL Calcium 9.3 (8.4-10.2) mg/dL Magnesium 2.0 (1.6-2.3) mg/dL Total Bilirubin 0.7 (0.2-1.3) mg/dL AST 30 (14-36) U/L ALT 38 (9-52) U/L Alkaline Phosphatase 87 (38-126) U/L Total Creatine Kinase 23 L (30-135) U/L CK-MB (CK-2) 0.5 (0.0-2.4) ng/mL CK-MB (CK-2) Rel Index 2.2 Troponin I <0.012 (0.000-0.034) ng/mL NT-Pro-B Natriuret Pep pg/mL Total Protein 7.4 (6.3-8.2) g/dL Albumin 3.5 (3.5-5.0) g/dL 12/08/16 12/08/16 Range/Units 13:15 13:15 WBC (3.8-10.6) k/uL RBC (3.80-5.40) m/uL Hgb (11.4-16.0) gm/dL Hct (34.0-46.0) % MCV (80.0-100.0) fL MCH (25.0-35.0) pg MCHC (31.0-37.0) g/dL RDW (11.5-15.5) % Plt Count (150-450) k/uL Neutrophils % % Lymphocytes % % Monocytes % % Eosinophils % % Basophils % % Neutrophils # (1.3-7.7) k/uL Lymphocytes # (1.0-4.8) k/uL Monocytes # (0-1.0) k/uL Eosinophils # (0-0.7) k/uL Basophils # (0-0.2) k/uL Hypochromasia PT 29.5 H (9.0-12.0) sec INR 3.1 (<1.1) APTT 44.3 H (22.0-30.0) sec Sodium (137-145) mmol/L Potassium (3.5-5.1) mmol/L Chloride (98-107) mmol/L Carbon Dioxide (22-30) mmol/L Anion Gap mmol/L BUN (7-17) mg/dL Creatinine (0.52-1.04) mg/dL Est GFR (MDRD) Af Amer (>60 ml/min/1.73 sqM) Est GFR (MDRD) Non-Af (>60 ml/min/1.73 sqM) Glucose (74-99) mg/dL Calcium (8.4-10.2) mg/dL Magnesium (1.6-2.3) mg/dL Total Bilirubin (0.2-1.3) mg/dL AST (14-36) U/L ALT (9-52) U/L Alkaline Phosphatase (38-126) U/L Total Creatine Kinase (30-135) U/L CK-MB (CK-2) (0.0-2.4) ng/mL CK-MB (CK-2) Rel Index Troponin I (0.000-0.034) ng/mL NT-Pro-B Natriuret Pep 440 pg/mL Total Protein (6.3-8.2) g/dL Albumin (3.5-5.0) g/dL - Radiology Data Radiology results: report reviewed (Chest x-ray shows significant right-sided pleural effusion), image reviewed Disposition Clinical Impression: COPD with hypoxia, Acute exacerbation of chronic obstructive airways disease, Pleural effusion, right Disposition: ADMITTED IP TO THIS HOSP Condition: Fair Referrals: Thien Aleman MD [Primary Care Provider] - 1-2 days
[2016-12-08 13:34] LABS: Basophils % (A) 0 %; CH 28.2; CHCM 32.2; Eosinophils # (A) 0.1 k/uL (0-0.7); Eosinophils % (A) 1 %; HCT 29.3 % (34.0-46.0); HDW 3.27; Hypochromasia Slight; Luc # (Auto) 0.35; Luc % (Auto) 3; Lymphocytes # (A) 0.7 k/uL (1.0-4.8); Lymphocytes % (A) 7 %; MCH 29.7 pg (25.0-35.0); MCHC 33.8 g/dL (31.0-37.0); MCV 87.6 fL (80.0-100.0); Mean Platelet Volume 7.8; Monocytes # (A) 0.5 k/uL (0-1.0); Monocytes % (A) 5 %; Neutrophils # (A) 8.6 k/uL (1.3-7.7); Neutrophils % (A) 83 %; RBC 3.35 m/uL (3.80-5.40); RDW 14.8 % (11.5-15.5); WBC 10.3 k/uL (3.8-10.6); WBC (Perox) 10.79
[2016-12-08 13:43] LABS: ALT 38 U/L (9-52); AST 30 U/L (14-36); Alkaline Phosphatase 87 U/L (38-126); Anion Gap 11 mmol/L; Blood Urea Nitrogen 22 mg/dL (7-17); Calcium 9.3 mg/dL (8.4-10.2); Carbon Dioxide 28 mmol/L (22-30); Chloride 99 mmol/L (98-107); Glucose 98 mg/dL (74-99); Non-African American GFR(MDRD) 54 (>60 ml/min/1.73 sqM); Potassium 4.1 mmol/L (3.5-5.1); Sodium 138 mmol/L (137-145); Total Bilirubin 0.7 mg/dL (0.2-1.3); Total Protein 7.4 g/dL (6.3-8.2)
[2016-12-08 13:45] LABS: INR 3.1 (<1.1); Partial Thromboplastin Time 44.3 sec (22.0-30.0); Prothrombin Time 29.5 sec (9.0-12.0)
[2016-12-08 13:49] LABS: HGB 9.9 gm/dL (11.4-16.0)
[2016-12-08 13:54] LABS: Creatine Kinase 23 U/L (30-135)
--- NOTE | 2016-12-08 13:57 | XR ---
EXAMINATION TYPE: XR chest 2V DATE OF EXAM: 12/08/2016 HISTORY: difficulty breathing. REFERENCE: Previous study dated 10/16/2016. FINDINGS: There has developed a large right-sided pleural effusion. There is associated airspace dise ase. There is a smaller left effusion. There is vascular congestion. Heart size is obscured. IMPRESSION: LARGE RIGHT-SIDED PLEURAL EFFUSION.
[2016-12-08 14:07] LABS: Creatine Kinase MB 0.5 ng/mL (0.0-2.4); Troponin I <0.012 ng/mL (0.000-0.034)
[2016-12-08] MEDS ORDERED: methylPREDNISolone SOD SUCCI 125 MG/2 ML VIAL IV STA (15:22)
[2016-12-08] MEDS ORDERED: IPRATROPIUM-ALBUTEROL 3 ML NEB INHALATION PRN (15:22)
[2016-12-08] MEDS: IPRATROPIUM 0.5 MG/2.5 ML NEBU INHALATION SCH (19:54)
[2016-12-08] MEDS ORDERED: WARFARIN 2 MG TAB PO SCH (22:40)
[2016-12-08] MEDS: methylPREDNISolone SOD SUCCI 125 MG/2 ML VIAL IV SCH (23:26)
[2016-12-08] MEDS: ATORVASTATIN 20 MG TAB PO SCH (23:26)
[2016-12-08] MEDS: GABAPENTIN 300 MG CAP PO SCH (23:26)
[2016-12-09] MEDS ORDERED: NITROGLYCERIN SL TABS 0.4 MG TAB SUBLINGUAL PRN (00:12)
[2016-12-09] MEDS ORDERED: TEMAZEPAM 15 MG CAP PO PRN (00:13)
[2016-12-09] MEDS ORDERED: HYDROmorphone 1 MG/ML 1 ML SYRINGE IVP PRN (00:13)
[2016-12-09] MEDS ORDERED: ALPRAZolam 0.25 MG TAB PO PRN (00:13)
[2016-12-09] MEDS ORDERED: HYDROcodone/APAP 5-325MG 1 EACH TAB PO PRN (00:13)
[2016-12-09] MEDS: methylPREDNISolone SOD SUCCI 125 MG/2 ML VIAL IV SCH ×2 (06:11→12:29)
[2016-12-09] MEDS ORDERED: LEVOTHYROXINE 100 MCG TAB PO SCH ×2 (06:30→09:00)
[2016-12-09] MEDS ORDERED: PANTOPRAZOLE 40 MG TABLET PO SCH (07:30)
[2016-12-09 07:38] LABS: Glucose,Whole Blood 146 mg/dL (75-99)
[2016-12-09] MEDS: IPRATROPIUM 0.5 MG/2.5 ML NEBU INHALATION SCH ×4 (08:03→19:32)
[2016-12-09] MEDS: MAGNESIUM OXIDE 400 MG TAB PO SCH (08:18)
[2016-12-09] MEDS: GABAPENTIN 300 MG CAP PO SCH ×3 (08:18→21:15)
[2016-12-09] MEDS: amLODIPine 10 MG TAB PO SCH (08:18)
[2016-12-09] MEDS: DIGOXIN 125 MCG TAB PO SCH (08:18)
[2016-12-09] MEDS: FERROUS SULFATE 325 MG TAB PO SCH (08:18)
[2016-12-09] MEDS: CALCIUM CARB-VIT D 500MG-200UN 1 EACH TAB PO SCH ×3 (08:19→21:14)
[2016-12-09] MEDS: VIT A,C & E-LUTEIN-MINERALS 1 EACH TAB PO SCH ×2 (08:19→21:14)
[2016-12-09] MEDS ORDERED: NON-FORMULARY DRUG (Omega-3 Fatty Acids/Fish Oil [Fish Oil 1,000 Mg Softgel] 1 CAP) PO SCH (09:00)
[2016-12-09] MEDS ORDERED: FAMOTIDINE 20 MG TAB PO SCH (09:00)
[2016-12-09 09:37] LABS: Basophils % (A) 0 %; CH 28.2; CHCM 31.6; Eosinophils % (A) 0 %; HCT 30.1 % (34.0-46.0); HDW 3.22; HGB 9.7 gm/dL (11.4-16.0); Hypochromasia Slight; Luc # (Auto) 0.06; Luc % (Auto) 1; Lymphocytes # (A) 0.4 k/uL (1.0-4.8); Lymphocytes % (A) 4 %; MCH 28.8 pg (25.0-35.0); MCHC 32.2 g/dL (31.0-37.0); MCV 89.2 fL (80.0-100.0); Mean Platelet Volume 7.5; Monocytes # (A) 0.2 k/uL (0-1.0); Monocytes % (A) 2 %; Neutrophils # (A) 9.6 k/uL (1.3-7.7); Neutrophils % (A) 94 %; RBC 3.37 m/uL (3.80-5.40); WBC 10.3 k/uL (3.8-10.6); WBC (Perox) 10.32
[2016-12-09 09:40] LABS: INR 3.4 (<1.1); Prothrombin Time 32.6 sec (9.0-12.0)
--- NOTE | 2016-12-09 09:56 | US ---
EXAMINATION TYPE: US chest DATE OF EXAM: 12/09/2016 COMPARISON: Chest x-ray from yesterday CLINICAL HISTORY: Right pleural effusion, Right lung. EXAM MEASUREMENTS: Right Pleural Effusion fluid pocket: 12.6 cm Right skin to fluid thickness: 3.2 cm Right side marked for possible thoracentesis outside the dept. Pulmonologists are able to review the images in the patient?s EMR. On 5 images saved a moderate to large size right pleural effusion is confirmed which correlates with x-ray. IMPRESSIONS: As above
[2016-12-09 10:10] LABS: Anion Gap 11 mmol/L; Blood Urea Nitrogen 28 mg/dL (7-17); Calcium 9.5 mg/dL (8.4-10.2); Carbon Dioxide 27 mmol/L (22-30); Chloride 101 mmol/L (98-107); Glucose 181 mg/dL (74-99); Non-African American GFR(MDRD) 54 (>60 ml/min/1.73 sqM); Potassium 4.2 mmol/L (3.5-5.1); Sodium 139 mmol/L (137-145)
--- NOTE | 2016-12-09 10:13 | P.CNPUL ---
History of Present Illness Consult date: 12/09/16 Reason for consult: dyspnea, pleural effusion Chief complaint: Shortness of breath History of present illness: Consult dated 12/09/2016 This is a 76-year-old female who presented to the emergency room for complaints of 1-2 days worth of increasing and progressive shortness of breath. The shortness of breath was mostly on exertion but occasionally at rest. The patient has been on home oxygen for some time. She recently was at [facility] for ruptured aneurysm. She apparently had a cold O Pl. She was here initially and transferred. She does have history of atrial fibrillation as well as congestive heart failure. I talked to the patient about a possible thoracentesis. She wasn't excited about it. She would prefer that we would use diuretics for medical therapy to help with the effusion. She just had a bad experience in this hospital last really does not want anything done. In addition to all of that, she is on Coumadin and her PT/INR prolonged. It would have to wait for another couple days before we could do the thoracentesis even if she agreed to it. Review of Systems A 12 point review of system is positive for dyspnea on exertion. Past Medical History Past Medical History: Coronary Artery Disease (CAD), COPD, GERD/Reflux, Hyperlipidemia, Hypertension, Thyroid Disorder Additional Past Medical History / Comment(s): COPD, coronary artery disease, abdominal aortic aneurysm repair, breast cancer with previous right partial mastectomy followed by radiation therapy and thousand and 6, chronic atrial fibrillation maintained on long-term anticoagulation with warfarin, macular degeneration, chronic sinus disease, History of Any Multi-Drug Resistant Organisms: None Reported Past Surgical History: Cholecystectomy, Hysterectomy, Tubal Ligation Additional Past Surgical History / Comment(s): triple A repair 2007, Right breast lumpectomy, Past Anesthesia/Blood Transfusion Reactions: No Reported Reaction Past Psychological History: No Psychological Hx Reported Smoking Status: Former smoker Past Alcohol Use History: None Reported Past Drug Use History: None Reported - Past Family History Mother Additional Family Medical History / Comment(s): diabetic, cardiomegaly, thyroid disorders Medications and Allergies Home Medications Medication Instructions Recorded Confirmed Type Gabapentin [Neurontin] 300 mg PO TID 07/27/14 12/08/16 History Levothyroxine Sodium [Synthroid] 100 mcg PO DAILY 07/27/14 12/08/16 History Simvastatin [Zocor] 40 mg PO HS 07/27/14 12/08/16 History Calcium Carbonate/Vitamin D3 1 tab PO TID 10/16/16 12/08/16 History [Calcium 500-Vit D3 600 Tablet] Digoxin [Lanoxin] 62.5 mcg PO DAILY 10/16/16 12/08/16 History Magnesium Chloride [Slow Mag] 128 mg PO DAILY 10/16/16 12/08/16 History Nitroglycerin Sl Tabs [Nitrostat] 0.4 mg SUBLINGUAL Q5M PRN 10/16/16 12/08/16 History [place]-3 Fatty Acids/Fish Oil [Fish 1 cap PO BID 10/16/16 12/08/16 History Oil 1,000 mg Softgel] Ranitidine HCl 150 mg PO BID 10/16/16 12/08/16 History Vits A,C,E/Lutein/Minerals 1 tab PO BID 10/16/16 12/08/16 History [Ocuvite with Lutein Tablet] Warfarin Sodium [Coumadin] 2 mg PO SUTUTH 10/16/16 12/08/16 History Warfarin Sodium [Coumadin] 4 mg PO MOWEFRSA 10/16/16 12/08/16 History Ferrous Sulfate [Feosol] 325 mg PO DAILY 12/08/16 12/08/16 History Ipratropium Nebulized [Atrovent 0.5 mg INHALATION RT-QID 12/08/16 12/08/16 History Nebulized] amLODIPine [Norvasc] 10 mg PO DAILY 12/08/16 12/08/16 History Allergies Allergy/AdvReac Type Severity Reaction Status Date / Time [facility] Allergy Unknown Verified 12/08/16 13:07 albuterol AdvReac Rapid Verified 12/08/16 13:07 Heart Rate Physical Exam Osteopathic Statement: *. No significant issues noted on an osteopathic structural exam other than those noted in the History and Physical/Consult. Vitals: Vital Signs Temp Pulse Pulse Pulse Resp BP BP 12/09/16 08:17 76 12/09/16 08:05 80 14 12/09/16 07:00 97.3 F L 75 14 132/69 12/08/16 23:00 97.0 F L 75 16 132/72 12/08/16 19:52 78 12/08/16 19:45 76 12/08/16 16:40 99.3 F 78 19 126/70 12/08/16 15:46 98.2 F 82 20 138/65 12/08/16 14:25 97.5 F L 79 18 133/63 12/08/16 13:19 83 18 164/76 12/08/16 12:50 20 12/08/16 12:40 98 F 84 24 149/71 Pulse Ox 12/09/16 08:17 12/09/16 08:05 12/09/16 07:00 95 12/08/16 23:00 92 L 12/08/16 19:52 12/08/16 19:45 12/08/16 16:40 92 L 12/08/16 15:46 93 L 12/08/16 14:25 94 L 12/08/16 13:19 94 L 12/08/16 12:50 12/08/16 12:40 91 L Intake and Output 12/08/16 12/09/16 12/09/16 22:59 06:59 14:59 Intake Total 10 Balance 10 Intake: Amount of Fluid Infused ( 10 ml) Other: Voiding Method Toilet # Voids 2 No acute distress, oriented 3. HEENT examination is grossly unremarkable. Mucous membranes are moist. No oral lesions. Neck supple. Full range of motion. No adenopathy or thyromegaly. Cardiovascular examination reveals a regular rhythm rate. S1-S2 normal. No S3- S4. No distinct murmur. Heart rate about 90 bpm. Lungs reveal some dullness of the right lung base. A few crackles on the right side. No rhonchi or wheezes. Abdomen soft bowel sounds are heard. Extremities reveal some mild edema 1+. It's pitting. Skin without rash. Neurologic examination is nonfocal. Results - Laboratory Findings CBC and BMP: 12/09/16 09:18 12/08/16 13:15 PT/INR, D-dimer PT 32.6 sec (9.0-12.0) H 12/09/16 09:18 INR 3.4 (<1.1) 12/09/16 09:18 Abnormal lab findings: Abnormal Labs 12/08/16 12/08/16 12/08/16 13:15 13:15 13:15 RBC 3.35 L Hgb 9.9 L D Hct 29.3 L Neutrophils # 8.6 H Lymphocytes # 0.7 L PT APTT BUN 22 H POC Glucose (mg/dL) Total Creatine Kinase 23 L 12/08/16 12/09/16 12/09/16 13:15 07:27 09:18 RBC 3.37 L Hgb 9.7 L Hct 30.1 L Neutrophils # 9.6 H Lymphocytes # 0.4 L PT 29.5 H APTT 44.3 H BUN POC Glucose (mg/dL) 146 H Total Creatine Kinase 12/09/16 09:18 RBC Hgb Hct Neutrophils # Lymphocytes # PT 32.6 H APTT BUN POC Glucose (mg/dL) Total Creatine Kinase - Diagnostic Findings Chest x-ray: image reviewed (X-rays labs medications and ultrasound of chest is reviewed.) Assessment and Plan (1) Atrial fibrillation Status: Acute (2) CHF (congestive heart failure) Status: Acute (3) COPD (chronic obstructive pulmonary disease) Status: Acute (4) Hypertension Status: Acute (5) Hyperlipidemia Status: Acute (6) Pleural effusion, right Status: Acute Plan: Plan dated 12/09/2016 The patient some medications will be reviewed. Her PT INR is prolonged because she is chronically on Coumadin therapy. She is really not want a thoracentesis performed at this time. She hopes that we can treat this primarily with diuretics. We'll give it a try. Additional recommendations suggestions are forthcoming. In the end, she may need a thoracentesis in a few days. Additional recommendations suggestions are forthcoming. Prognosis is guarded. Time with Patient: Greater than 30
[2016-12-09 11:22] LABS: Glucose,Whole Blood 146 mg/dL (75-99)
--- NOTE | 2016-12-09 12:04 | HP ---
DATE OF ADMISSION: DATE OF SERVICE: 12/08/2016 CHIEF COMPLAINT: Shortness of breath. 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 Aleman in the outpatient setting was recently admitted to [facility]. The patient initially came in with abdominal pain and subsequently the patient became unresponsive and with severe hypotension with abdominal distention, the hepatic artery aneurysm leak was suspected. The patient was transferred to [facility] and apparently was coiling was done to control the bleeding. The reports are not available at this time. Currently the patient complaints of shortness of breath. Patient came to [facility] was admitted for further evaluation and treatment. Right sided pleural effusion is being noted. There is no history of any fever, rigors. No history of headache, loss of consciousness or seizures at this time. PAST MEDICAL HISTORY: History of CAD, COPD, GERD, hypertension, hyperlipidemia, history of hypothyroidism, history of cholecystectomy, hysterectomy. The home medications are: 1. Norvasc 10 mg p.o. daily. 2. Zocor 40 mg q.h.s. 3. Ranitidine 150 mg p.o. b.i.d. 4. Nitrostat 0.4 sublingual p.r.n. 5. Coumadin 2 mg Monday, Monday, , and 4 mg Monday, Monday, Monday, Monday. 6. Iron sulfate 325 mg daily. 7. Ocuvite 1 p.o. b.i.d. 8. Fish oil 1 p.o. b.i.d. 9. Slow Mag 128 mg p.o. daily. 10. Synthroid 100 mcg p.o. daily. 11. Atrovent 0.5 q.i.d. 12. Neurontin 300 mg p.o. t.i.d. 13. Lanoxin 62.5 mcg p.o. daily. 14. Calcium with vitamin D 1 p.o. t.i.d. Allergies are DILTIAZEM, ALBUTEROL. FAMILY HISTORY: History of diabetes mellitus, cardiomegaly, hypothyroidism. SOCIAL HISTORY: Previous history of smoking. No history of current smoking or alcohol intake. REVIEW OF SYSTEMS: ENT: Diminished hearing and diminished vision. CARDIOVASCULAR: No angina or palpitations, otherwise, mentioned earlier. RESPIRATORY: As mentioned earlier. GI: As mentioned earlier. : No dysuria. NERVOUS SYSTEM: No numbness or weakness. ALLERGY/IMMUNOLOGY: No asthma or hayfever. MUSCULOSKELETAL: As mentioned earlier. HEMATOLOGY/ONCOLOGY: As mentioned earlier. ENDOCRINE: No history of diabetes mellitus. CONSTITUTIONAL: As mentioned earlier. DERMATOLOGY: Negative. RHEUMATOLOGY: Negative. PSYCHIATRY: As mentioned earlier. PHYSICAL EXAMINATION: The patient is alert and oriented x3. Pulse is 78, blood pressure 126/70, respirations 19, temperature 99.3, pulse ox 92% on 2 L. HEENT: Conjunctivae normal. Oral mucosa moist. NECK: No jugular venous distention. No carotid bruit. No lymph node enlargement. CARDIOVASCULAR: S1 and S2, muffled. No S3, no S4. RESPIRATORY: Breath sounds diminished at the bases. A few scattered rhonchi and crackles. Breath sounds are markedly diminished on the right lower part of the abdomen dullness on percussion. ABDOMEN: Soft, obese, nontender. No mass palpable. No guarding or rigidity. No hepatosplenomegaly. LEGS: No edema, no swelling. NERVOUS SYSTEM: Higher function as mentioned. Moves all 4 limbs. No focal motor rule out sensory deficits. LYMPHATICS: No lymphadenopathy of neck, axillae or groin. SKIN: No ulcers, rashes or bleeding. LABS: WBC 10.3, hemoglobin 9.9. INR 3.1. ASSESSMENT: 1. Shortness of breath possible right pleural effusion, etiology undetermined. 2. Mild Coumadin coagulopathy. 3. Anemia, normocytic anemia of chronic disease. 4. History of recent hepatic artery aneurysm and subsequent abdominal bleeding resulted in severe hypotension, shock and acute respiratory failure and treated with possible coagulation at [facility]. 5. Increased BUN. 6. History of coronary artery disease. 7. History of atrial fibrillation, paroxysmal. 8. History of chronic obstructive pulmonary disease. 9. History of gastroesophageal reflux disease. 10. Hypertension. 11. Hyperlipidemia. 12. History of hypothyroidism. 13. History of chronic obstructive pulmonary disease. 14. History of abdominal aortic aneurysm and repair. 15. History of breast cancer, radiation and mastectomy. 16. History of long-term anticoagulation on Coumadin. 17. Macular degeneration. 18. Chronic sinus disease. 19. History of cholecystectomy. 20. Remote history of nicotine dependence. 21. FULL CODE. RECOMMENDATIONS AND DISCUSSION: This 76-year-old woman who presented with multiple complex medical issues. We will monitor the patient closely, continue the current medications. I recommend to resume the home medications. Hold Coumadin for now. Consult Dr. Marie and continue to monitor. We will also obtain an ultrasound of the chest to evaluate the extent of the pleural effusion. Otherwise, the prognosis guarded because of multiple complex medical issues. Further recommendations to follow. She orders for further details. A copy of dictation forwarded to Dr. Aleman who is the primary physician. FABIANO
[2016-12-09] MEDS: INSULIN LISPRO (humaLOG) 300 UNIT/3 ML VIAL SQ SCH ×3 (12:29→21:13)
[2016-12-09 16:02] VITALS: RESP 16
[2016-12-09 17:02] LABS: Glucose,Whole Blood 129 mg/dL (75-99)
--- NOTE | 2016-12-09 19:17 | PN ---
DATE OF SERVICE: 12/09/2016 This 76-year-old woman was admitted with shortness of breath, also significant right pleural effusion. Patient also had recent complicated medical history of aneurysm rupture and coiling done at [facility] associated with the hepatic artery. A chest ultrasound was given, done for the loculation of the right pleural effusion, about 12.6 cm, was also noted by Dr. Marie as well, who is following the patient closely. Dr. Marie has recommended to try with medical with treatment initially. The patient's INR is also elevated. PAST MEDICAL HISTORY: Reviewed. REVIEW OF SYSTEMS: CARDIOVASCULAR: No angina, palpitations. RESPIRATORY: As mentioned earlier. GI: No nausea. : No dysuria. NERVOUS: No numbness or weakness. Current medications are reviewed and include: 1. [place] 5 mg every 6 hours p.r.n. 2. Xanax 0.25 t.i.d. 3. Norvasc 10 mg daily. 4. Lipitor 20 mg q.h.s. 5. Os-Keo with vitamin D 1 p.o. daily. 6. Lanoxin 62.5 mg p.o. daily. 7. Pepcid 20 mg daily. 8. Iron sulfate 320 mg daily. 9. Lasix 20 mg IV b.i.d. 10. Neurontin 300 mg t.i.d. 11. Dilaudid 0.5 mg q.2 hours p.r.n. 12. Synthroid. 13. Magnesium oxide. 14. Eye-Biju. 15. Restoril. 16. Coumadin 2 mg. PHYSICAL EXAM: Patient is alert and oriented x3. Pulse is 77, blood pressure 130/76, respirations 16, temperature 96.8, pulse ox 98% on 2L. HEENT: Conjunctivae normal. NECK: No jugular venous distension. CARDIOVASCULAR: S1 and S2 muffled. RESPIRATORY: Breath sounds diminished in the bases. Markedly diminished on the right side also. A few rhonchi. ABDOMEN: Soft and nontender. No mass palpable. LEGS: No edema. No swelling. NERVOUS SYSTEM: Higher functions as mentioned. Moves all 4 limbs. No focal deficits. LYMPHATIC: No lymphadenopathy. SKIN: No ulcer, rash or bleeding. LABS: WBC 10.7, hemoglobin is 9.7. Glucose is 146. ASSESSMENT: 1. Shortness of breath, possibly right pleural effusion, etiology undetermined. 2. Rule out congestive heart failure. 3. Mild Coumadin coagulopathy. 4. Anemia, normocytic anemia of chronic disease. 5. History of recent hepatic aortic aneurysm and subsequent rupture and abdominal bleeding resulting in severe hypotension, shock, acute respiratory failure treated with possibly coiling at [facility]. 6. Increased BUN. 7. History of coronary artery disease. 8. History of atrial fibrillation, paroxysmal. 9. History of chronic obstructive pulmonary disease. 10. History of gastroesophageal reflux disease. 11. Hypertension, essential. 12. Hyperlipidemia. 13. History of hypothyroidism. 14. History of chronic obstructive pulmonary disease. 15. History of abdominal aortic aneurysm repair. 16. History of breast cancer, radiation and mastectomy. 17. History long-term anticoagulation with Coumadin. 18. Macular degeneration. 19. Chronic sinus disease. 20. History of cholecystectomy. 21. Remote history of nicotine dependence. 22. FULL CODE. RECOMMENDATIONS AND DISCUSSION: In this 77-year-old woman who presented with multiple complex medical issues, will monitor the patient closely. Continue the current medications, continue symptomatic treatment. Otherwise, at this time, I would keep holding the Coumadin for now until further determination is made; otherwise, a small dose of Lasix. Monitor fluid, electrolytes closely. Continue the rest of the medications. Increase ambulation. Guarded prognosis because of multiple complex medical issues. Dr. Marie's input appreciated. See orders for further details. Further recommendations to follow. Discussed with the patient. FABIANO
[2016-12-09 20:48] LABS: Glucose,Whole Blood 139 mg/dL (75-99)
[2016-12-09] MEDS: ATORVASTATIN 20 MG TAB PO SCH (21:12)
[2016-12-09] MEDS: FUROSEMIDE 10 MG/ML 2 ML VIAL IV SCH (21:13)
[2016-12-09] MEDS ORDERED: WARFARIN 2 MG TAB PO SCH (22:29)
[2016-12-10] MEDS: LEVOTHYROXINE 100 MCG TAB PO SCH (06:01)
--- NOTE | 2016-12-10 06:51 | XR ---
EXAMINATION TYPE: XR chest 2V DATE OF EXAM: 12/10/2016 HISTORY: right pleural effusion. REFERENCE: Previous study dated 12/08/2016. FINDINGS: There are bilateral effusions, much worse on the right than the left. Heart size is obscure d. There is associated right-sided atelectasis. IMPRESSION: NO SIGNIFICANT INTERVAL CHANGE IN THE APPEARANCE OF THE CHEST.
[2016-12-10 07:08] LABS: Glucose,Whole Blood 116 mg/dL (75-99)
[2016-12-10] MEDS: IPRATROPIUM 0.5 MG/2.5 ML NEBU INHALATION SCH ×4 (08:11→19:12)
[2016-12-10] MEDS: amLODIPine 10 MG TAB PO SCH (08:16)
[2016-12-10] MEDS: FERROUS SULFATE 325 MG TAB PO SCH (08:16)
[2016-12-10] MEDS: GABAPENTIN 300 MG CAP PO SCH ×3 (08:16→22:24)
[2016-12-10] MEDS: DIGOXIN 125 MCG TAB PO SCH (08:16)
[2016-12-10] MEDS: FAMOTIDINE 20 MG TAB PO SCH (08:16)
[2016-12-10] MEDS: MAGNESIUM OXIDE 400 MG TAB PO SCH (08:16)
[2016-12-10] MEDS: CALCIUM CARB-VIT D 500MG-200UN 1 EACH TAB PO SCH ×3 (08:16→22:24)
[2016-12-10] MEDS: VIT A,C & E-LUTEIN-MINERALS 1 EACH TAB PO SCH ×2 (08:16→22:24)
[2016-12-10] MEDS: FUROSEMIDE 10 MG/ML 2 ML VIAL IV SCH (08:18)
[2016-12-10] MEDS: INSULIN LISPRO (humaLOG) 300 UNIT/3 ML VIAL SQ SCH ×4 (08:18→22:16)
[2016-12-10 10:12] LABS: INR 3.1 (<1.1); Prothrombin Time 30.4 sec (9.0-12.0)
[2016-12-10 10:23] LABS: Basophils % (A) 0 %; CH 28.3; Eosinophils % (A) 0 %; HCT 29.3 % (34.0-46.0); HDW 3.24; HGB 9.8 gm/dL (11.4-16.0); Hypochromasia Slight; Luc # (Auto) 0.29; Luc % (Auto) 2; Lymphocytes # (A) 0.6 k/uL (1.0-4.8); Lymphocytes % (A) 5 %; MCH 29.6 pg (25.0-35.0); MCHC 33.5 g/dL (31.0-37.0); MCV 88.5 fL (80.0-100.0); Mean Platelet Volume 7.9; Monocytes # (A) 0.7 k/uL (0-1.0); Monocytes % (A) 5 %; Neutrophils # (A) 12.4 k/uL (1.3-7.7); Neutrophils % (A) 88 %; RBC 3.31 m/uL (3.80-5.40); RDW 15.1 % (11.5-15.5); WBC 14.1 k/uL (3.8-10.6); WBC (Perox) 14.49
[2016-12-10 10:46] LABS: Potassium 3.9 mmol/L (3.5-5.1)
[2016-12-10 11:39] LABS: Glucose,Whole Blood 94 mg/dL (75-99)
--- NOTE | 2016-12-10 12:47 | PN ---
This is a 76-year-old female with a diagnosis of atrial fibrillation, CHF, right pleural effusion, COPD, hypertension, hyperlipidemia. The patient because she had a bad experience in this hospital recently did not really prefer to have a thoracentesis performed. She apparently had some sort of issue recently. The patient recently had a bad experience here where she had to be transferred to [facility]. I asked her about thoracentesis. She preferred to try medications for her pleural effusion. She is on Lasix 20 q.12. We will bump her to 40 q.12. Her chest x-ray today really has not changed. In addition, another limiting factor for thoracentesis was the fact that she was on anticoagulation with Coumadin and her PT, INR was prolonged. Anyway, she is feeling better today. Sitting up in the chair. She feels better sitting up than lying down which would make sense. Current temperature 98.8, heart rate 80, respiratory 16, blood pressure 143/67, mean 92, 3 liters saturation 94%. Appears in no acute distress. HEENT examination is grossly unremarkable. Nasal O2 in place. Mucous membranes are moist. No oral lesions. Neck is supple. Full range of motion. No adenopathy or thyromegaly. Neck veins are flat. Cardiovascular examination reveals distant heart sounds. S1, S2 normal. No S3, S4. No distinct murmurs noted. Heart rate 78. Lungs reveal dullness at the right lung base. Decreased breath sounds at the right lung base. No crackles or wheezes. Abdomen is soft. Bowel sounds are heard. No masses or tenderness. Extremities reveal very mild edema. There is probably less than 1+, is mildly pitting. Skin without rash. Neurological examination is nonfocal. Labs are reviewed. White count 14.1, hemoglobin 9.8, hematocrit 29.3, platelet count normal. PT, INR is still prolonged at 30.4 and 3.1. Sodium, potassium, chloride normal. CO2 of 32, BUN and creatinine were 36 and 1.11 suggesting prerenal azotemia. Chest x-ray was reviewed. Medications are reviewed. ASSESSMENT: 1. Right pleural effusion. 2. Atrial fibrillation. 3. Congestive heart failure. 4. Chronic obstructive pulmonary disease. 5. Hypertension. 6. Hyperlipidemia. PLAN: I will continue to allow the PT, INR to drift down. She is not excited about thoracentesis and when asked again today she would prefer not to have one. I will not give her additional Coumadin. Hopefully by Monday she will be improved and/or she will agree to thoracentesis. PT, INR in the morning.
[2016-12-10 16:56] LABS: Glucose,Whole Blood 90 mg/dL (75-99)
[2016-12-10] MEDS ORDERED: PHYTONADIONE ORAL 5 MG/5 ML ORAL.SYRG PO STA (17:03)
[2016-12-10 20:39] LABS: Glucose,Whole Blood 110 mg/dL (75-99)
--- NOTE | 2016-12-10 20:41 | PN ---
DATE OF SERVICE: 12/10/2016 This 76-year-old woman was admitted to the hospital with shortness of breath and possibly right pleural effusion is improving significantly. The patient also had mild Coumadin coagulopathy also. The patient has significant right pleural effusion. The thoracocentesis has been deferred for now and the chest x-ray which was done today was personally reviewed by me showed persistent right pleural effusion. PAST MEDICAL HISTORY: Reviewed. REVIEW OF SYSTEMS: CARDIOVASCULAR: No angina. RESPIRATORY: As mentioned earlier. GI: As mentioned earlier. : No dysuria. Nervous system: No focal deficits. Current MEDICATIONS are reviewed and include: 1. [place] 5 mg q6h p.r.n. 2. Xanax 0.25 t.i.d. 3. Norvasc 10 mg. 4. Lipitor 20 mg. 5. Os-Keo with Vitamin D. 6. Lanoxin 6.25 micrograms p.o. daily. 7. Pepcid 20 mg daily. 9. Lasix 40 mg IV b.i.d. 10. Neurontin. 11. Dilaudid. 12. Synthroid. 14. Restoril. 15. Coumadin on hold. PHYSICAL EXAM: Patient is alert and oriented x3. Pulse 73, blood pressure 130/80. Respiratory rate 16. Temperature 97 degrees. Pulse ox 95% on room air. HEENT: Conjunctivae normal. Oral mucosa moist. NECK: No jugular venous distention. No carotid bruit. No lymph node enlargement. CARDIOVASCULAR: S1, S2 muffled. RESPIRATORY: Breath sounds diminished at the bases. A few scattered rhonchi and crackles. Expiratory wheezing also present. Breath sounds markedly diminished on the right side. ABDOMEN: Soft, nontender. No mass palpable. No hepatosplenomegaly. LEGS: No edema. No swelling. CENTRAL NERVOUS SYSTEM: Higher functions as mentioned earlier. Moves all four limbs. No focal deficits. SKIN: No ulcer, rash or bleeding. LYMPHATICS: No lymph nodes palpable in the neck, axillae or groin. LABS: WBC 14.2, hemoglobin 10.8, INR 3.1, Creatinine is 1.10, 1.11. NT-proBNP is only 440. ASSESSMENT: 1. Shortness of breath possibly right pleural effusion. Etiology undetermined for evaluation. 2. Rule out congestive heart failure. 3. Mild Coumadin coagulopathy present on admission. 4. Anemia, normocytic anemia of chronic disease. 5. History of recent hepatic artery aneurysm and subsequent ruptured and abdominal bleeding in the setting of severe hypotensive shock, acute respiratory failure treated with possibly coiling at [facility]. 6. Increased BUN. 7. History of coronary artery disease. 8. History atrial fibrillation, paroxysmal. 9. History of chronic obstructive pulmonary disease. 10. Coumadin monitoring. 11. History of gastroesophageal reflux disease. 12. Hypertension, essential. 13. Hyperlipidemia. 14. History of hypothyroidism. 15. History of chronic obstructive pulmonary disease. 16. History of abdominal aortic aneurysm repair. 17. History of breast cancer, radiation, mastectomy. 18. History of long-term anticoagulation with Coumadin. 19. Macular degeneration. 20. Chronic sinus disease. 21. History of cholecystectomy. 22. Remote history of nicotine dependence. 23. FULL CODE. RECOMMENDATIONS AND DISCUSSION: Recommend to continue current medications. Continue with monitoring and symptomatic treatment. Otherwise, at this time, I would recommend vitamin K, p.o. 2.5 today and continue to monitor the PT, INR. Otherwise, continue to monitor. Further recommendations to follow. Prognosis guarded. Coumadin is on hold. Continue the rest of medications and chest x-ray was also reviewed and hardly showed any changes and closely monitor renal function. [facility]
[2016-12-10] MEDS: ATORVASTATIN 20 MG TAB PO SCH (22:24)
[2016-12-10] MEDS: FUROSEMIDE 10 MG/ML 4 ML VIAL IV SCH (22:30)
[2016-12-11 08:10] VITALS: BP 118/63; TEMP 96.8
[2016-12-11 08:33] LABS: INR 1.3 (<1.1); Prothrombin Time 12.7 sec (9.0-12.0)
[2016-12-11] MEDS: FUROSEMIDE 10 MG/ML 4 ML VIAL IV SCH (08:48)
[2016-12-11] MEDS: amLODIPine 10 MG TAB PO SCH (08:49)
[2016-12-11] MEDS: FERROUS SULFATE 325 MG TAB PO SCH (08:49)
[2016-12-11] MEDS: MAGNESIUM OXIDE 400 MG TAB PO SCH (08:49)
[2016-12-11] MEDS: CALCIUM CARB-VIT D 500MG-200UN 1 EACH TAB PO SCH (08:49)
[2016-12-11] MEDS: GABAPENTIN 300 MG CAP PO SCH (08:49)
[2016-12-11] MEDS: DIGOXIN 125 MCG TAB PO SCH (08:49)
[2016-12-11] MEDS: FAMOTIDINE 20 MG TAB PO SCH (08:49)
[2016-12-11] MEDS: VIT A,C & E-LUTEIN-MINERALS 1 EACH TAB PO SCH (08:49)
[2016-12-11] MEDS: INSULIN LISPRO (humaLOG) 300 UNIT/3 ML VIAL SQ SCH ×2 (08:50→11:38)
[2016-12-11] MEDS: LEVOTHYROXINE 100 MCG TAB PO SCH (08:50)
[2016-12-11 09:39] LABS: Calcium 9.8 mg/dL (8.4-10.2); Potassium 3.7 mmol/L (3.5-5.1)
[2016-12-11 09:49] LABS: Basophils % (A) 0 %; CH 28.1; CHCM 30.7; Eosinophils # (A) 0.1 k/uL (0-0.7); Eosinophils % (A) 1 %; HCT 30.3 % (34.0-46.0); HDW 3.01; HGB 9.3 gm/dL (11.4-16.0); Hypochromasia Moderate; Luc # (Auto) 0.24; Luc % (Auto) 3; Lymphocytes # (A) 0.7 k/uL (1.0-4.8); Lymphocytes % (A) 8 %; MCH 28.2 pg (25.0-35.0); MCHC 30.8 g/dL (31.0-37.0); MCV 91.7 fL (80.0-100.0); Mean Platelet Volume 7.7; Monocytes # (A) 0.6 k/uL (0-1.0); Monocytes % (A) 6 %; Neutrophils # (A) 7.5 k/uL (1.3-7.7); Neutrophils % (A) 82 %; RDW 15.1 % (11.5-15.5); WBC 9.2 k/uL (3.8-10.6); WBC (Perox) 10.28
[2016-12-11] MEDS ORDERED: LIDOCAINE 1% INJ 10MG/ML (20 ML MDV) ONE (10:20)
--- NOTE | 2016-12-11 11:13 | XR ---
EXAMINATION TYPE: XR chest 1V portable DATE OF EXAM: 12/11/2016 HISTORY: post thoracentesis. REFERENCE: Previous study dated 12/10/2016. FINDINGS: The study is quite kyphotic. There continues to be right-sided pleural effusion. Heart size is obscured. The left lung appears antonio ar. IMPRESSION: ALLOWING FOR THE KYPHOTIC NATURE OF THE PROJECTION, I DO NOT SEE A DEFINITE INTERVAL DRISCOLL GE IN THE APPEARANCE OF THE CHEST.
[2016-12-11] MEDS: IPRATROPIUM 0.5 MG/2.5 ML NEBU INHALATION SCH ×2 (11:38→11:51)
[2016-12-11 12:03] VITALS: PULSE 68
--- NOTE | 2016-12-11 13:33 | PN ---
76-year-old female who underwent thoracentesis today on the right side. I removed about a liter of dark brown/black fluid. Ominous looking. It was sent for evaluation including chemistry and microbiology and cytology. She also has a history of atrial fibrillation, CHF, COPD, hypertension, and hyperlipidemia. She wants to be discharged home. Has an appointment at [facility] on Monday. Feeling well. Chest x-ray was evaluated post thoracentesis. Fluid is less. No obvious post thoracentesis complication. She is feeling better. Temperature 96.8, heart rate 72, respiratory 16, blood pressure 118/63, mean 81, 3 liters saturation 93%. Appears in no acute distress. HEENT examination is grossly unremarkable. Mucous membranes are moist. No oral lesions. Neck is supple. Full range of motion. No adenopathy or thyromegaly. Neck veins are flat. Cardiovascular examination reveals irregular rhythm and rate. S1, S2 normal. No distinct murmur. No S3, S4. Lungs reveal diminished breath sounds on the right. No wheezes or rhonchi. No crackles. There is dullness at the right base. ABDOMEN: Soft. Bowel sounds are heard. EXTREMITIES: Intact. No cyanosis, clubbing, or edema. Skin without rash. Neurologic examination is brief but nonfocal. Lab data is reviewed. White count 9.2, hemoglobin 9.3, hematocrit 30.3, platelet count 341,000. PT, INR were 12.7 and 1.3. Sodium, potassium and chloride, and CO2 all normal. BUN and creatinine were 43 and 1.09. Microbiology is all negative. No recent x-rays to review other than the post thoracentesis x-ray which showed no complication. Fluid was sent for analysis. ASSESSMENT: 1. Right pleural effusion, ominous looking, status post right thoracentesis was 1 liter removed. 2. Chronic atrial fibrillation. 3. History of congestive heart failure. 4. Chronic obstructive pulmonary disease. 5. Hypertension. 6. Hyperlipidemia. PLAN: The patient may be discharged today by the primary service. I do not know. The fluid was sent for analysis. Chest x-ray done. Will continue to follow. Lasix will be discontinued or at least put back at her normal daily dose.
[2016-12-11 14:11] LABS: RBC, Body Fluid 130000 /uL
--- NOTE | 2016-12-11 15:55 | PCN ---
DATE OF PROCEDURE: THORACENTESIS PROCEDURE: Right thoracentesis. PREOPERATIVE DIAGNOSIS: Right pleural effusion. POSTOPERATIVE DIAGNOSIS: Right pleural effusion. Indication: Pleural effusion. A time-out was completed verifying correct patient, procedure, site, positioning, and implant (s) or special equipment if applicable. Ultrasound guidance was used and appropriate fluid pocket was identified and marked. Patient was positioned, prepped and draped in usual sterile fashion. Lidocaine was used to anesthetize the area. A Thoracentesis catheter was introduced into the pleural space and fluid was removed. Blood loss was none. A chest x-ray was ordered to evaluate for pneumothorax. Total Fluid Removed: 1000 mL was removed. Color of Fluid: Fluid was not sent for appropriate laboratory tests. Patient tolerated the procedure well and there were no complications. There was no immediate complication. The right posterior chest was marked. The fluid was sent for analysis. This included cytology, microbiology and chemistry. A chest x-ray was ordered post procedure to make sure there is no pneumothorax. The procedure was uneventful.
--- NOTE | 2016-12-11 16:30 | DS ---
DATE OF ADMISSION: 12/08/2016 DATE OF DISCHARGE: 12/11/2016 FINAL DIAGNOSES: 1. Shortness of breath with possible right pleural effusion and possibly hemorrhagic etiology uncertain. 2. Mild Coumadin coagulopathy, present on admission. 3. Anemia, normocytic anemia of chronic disease. 4. History of recent hepatic artery aneurysm and subsequent ruptured abdominal bleeding in the setting of severe hypotension shock, acute respiratory failure, treated with primary possibly coiling at [facility]. 5. Increased BUN. 6. History of coronary artery disease. 7. History of atrial fibrillation paroxysmal. 8. History of chronic obstructive pulmonary disease. 9. Coumadin monitoring. 10. History of gastroesophageal reflux disease. 11. Hypertension, essential. 12. Hyperlipidemia. 13. History of hypothyroidism. 14. History of chronic obstructive pulmonary disease. 15. History of abdominal aortic aneurysm repair. 16. History of breast cancer, radiation, mastectomy. 17. History of long-term anticoagulation with Coumadin. 18. Macular degeneration. 19. Chronic sinus disease. 20. History of cholecystectomy. 21. Remote history of nicotine dependence. 22. No evidence of congestive heart failure DISCHARGE DISPOSITION: The patient will be discharged in stable condition with guarded prognosis. Total time taken is 35 minutes. HISTORY OF PRESENT ILLNESS: This 76-year-old woman with a past medical history of multiple medical problems including shortness of breath, has pleural effusion on the right side. The patient also had Coumadin coagulopathy, mild. The patient underwent thoracocentesis on the right side by Dr. Marie after stabilization of the PT/INR. Otherwise, the patient was treated symptomatically and improved significantly. Creatinine stabilized. On exam, vitals are stable. CARDIOVASCULAR SYSTEM: S1, S2. ABDOMEN: Soft. NERVOUS SYSTEM: No focal deficits. Exact etiology of the pleural effusion is unknown at this time. The results are pending at this time. Recommend to closely follow with primary physician and pulmonology in the outpatient setting. DISCHARGE ADVICE: 1. Diet is cardiac. 2. Activity limited until follow-up. 3. Follow up with Dr. Aleman in 1 to 2 days. 4. Follow up with Dr. Marie as advised. 5. Home care is also being arranged. Medications are as follows: 1. Norvasc 10 mg p.o. daily. 2. Calcium carbonate 1 p.o. t.i.d. 3. Lantus 62.5 mg p.o. daily. 4. Iron sulfate 325 mg daily. 5. Neurontin 300 mg p.o. t.i.d. 6. Albuterol nebulizer 0.5 q.i.d. 7. Synthroid 100 mcg p.o. daily. 8. Slow-Mag 120 mg p.o. daily. 9. Medrol Dosepak after food. 10. Nitrostat 0.4 sublingual p.r.n. 11. Fish oil 1 p.o. daily. 12. Ranitidine 150 mg p.o. b.i.d. 13. Zocor 40 mg q.h.s. 14. Vitamin A, C and zinc 1 p.o. daily. 15. Coumadin 4 mg Monday, Monday, Monday, Monday and 2 mg Monday, Monday, . Follow up labs with Dr. Aleman, CBC, BMP, PT, INR.
[2016-12-12 10:49] LABS: T. Protein, Body Fluid Source Pleural Fluid
[2016-12-12 10:50] LABS: Glucose, BF Source Pleural Fluid; LDH, Body Fluid Source Pleural Fluid
== END 2016-12-11 15:07 | disposition home health service (06) | DRG 188 ==
LOC: EC 12:38 → 4MS4W 15:38
PROVIDERS: ADMIT Hospitalist; ATTEND Hospitalist
PROC: 0W993ZZ Drainage of Right Pleural Cavity, Percutaneous Approach (ICD-10-PCS; principal; 2016-12-11)
DX: J90 Pleural effusion, not elsewhere classified (principal); I50.9 Heart failure, unspecified; I11.0 Hypertensive heart disease with heart failure; Z99.81 Dependence on supplemental oxygen; I48.0 Paroxysmal atrial fibrillation; D63.8 Anemia in other chronic diseases classified elsewhere; E03.9 Hypothyroidism, unspecified; E78.5 Hyperlipidemia, unspecified; H35.30 Unspecified macular degeneration; I25.10 Atherosclerotic heart disease of native coronary artery without angina pectoris; I48.2 Chronic atrial fibrillation; J44.9 Chronic obstructive pulmonary disease, unspecified; K21.9 Gastro-esophageal reflux disease without esophagitis; R79.1 Abnormal coagulation profile; T45.515A Adverse effect of anticoagulants, initial encounter; Z79.01 Long term (current) use of anticoagulants; Z79.899 Other long term (current) drug therapy; Z83.3 Family history of diabetes mellitus; Z85.3 Personal history of malignant neoplasm of breast; Z86.79 Personal history of other diseases of the circulatory system; Z87.891 Personal history of nicotine dependence; Z90.10 Acquired absence of unspecified breast and nipple; Z92.3 Personal history of irradiation
CPT/HCPCS: 36415; 71010; 71020; 76604; 80048; 80053; 82550; 82553; 82945; 83615; 83735; 83880; 84157; 84484; 85025; 85610; 85730; 87070; 87102; 87116; 87205; 87206; 87252; 87496; 87498; 87502; 87529; 87798; 88108; 88305; 89050; 93005; 94640; 94760; 96374; 99285

== ENCOUNTER 2022-11-29 14:18 | Observation (INO) | payer MEDICARE, BC ==
--- NOTE | 2022-11-29 14:23 | ED ---
General Adult HPI - General Source: RN notes reviewed <Emelia Quezada - Last Filed: 11/29/22 14:22> <Mykel Toribio - Last Filed: 11/29/22 16:59> - General Stated complaint: bradycardia Time Seen by Provider: 11/29/22 14:22 - History of Present Illness Initial comments: 82-year-old female presents to the emergency department with a chief complaint of low heart rate. Patient reports that her heart rate was 51 bpm yesterday. She is also complaining of low blood pressure. She denies any dizziness or lightheadedness. She reports she was recently admitted to [facility] for high heart rate. (Emelia Quezada) for elevated heart rate. She states that she was given a dose of metoprolol and ultimately discharged. She states that her heart rate has been low in the 50s. She's feeling somewhat lightheaded. she has had intermittent chest pain and indigestion. She reports history of atrial fibrillation and is currently on Coumadin. (Mykel Toribio) - Related Data Home Medications Medication Instructions Recorded Confirmed Gabapentin [Neurontin] 300 mg PO TID 07/27/14 12/08/16 Levothyroxine Sodium [Synthroid] 100 mcg PO DAILY 07/27/14 12/08/16 Simvastatin [Zocor] 40 mg PO HS 07/27/14 12/08/16 Calcium Carbonate/Vitamin D3 1 tab PO TID 10/16/16 12/08/16 [Calcium 500-Vit D3 15 Mcg (600 Iu)] Digoxin [Lanoxin] 62.5 mcg PO DAILY 10/16/16 12/08/16 Magnesium Chloride [Slow-Mag] 128 mg PO DAILY 10/16/16 12/08/16 Nitroglycerin Sl Tabs [Nitrostat] 0.4 mg SUBLINGUAL Q5M PRN 10/16/16 12/08/16 [place]-3 Fatty Acids/Fish Oil [Fish 1 cap PO BID 10/16/16 12/08/16 Oil 1,000 mg Softgel] Vits A,C,E/Lutein/Minerals 1 tab PO BID 10/16/16 12/08/16 [Ocuvite with Lutein Tablet] Warfarin Sodium [Coumadin] 2 mg PO SUTUTH 10/16/16 12/08/16 Warfarin Sodium [Coumadin] 4 mg PO MOWEFRSA 10/16/16 12/08/16 raNITIdine HCL [Zantac] 150 mg PO BID 10/16/16 12/08/16 Ferrous Sulfate [Feosol] 325 mg PO DAILY 12/08/16 12/08/16 amLODIPine [Norvasc] 10 mg PO DAILY 12/08/16 12/08/16 Previous Rx's Medication Instructions Recorded Ipratropium Nebulized [Atrovent 0.5 mg INHALATION RT-QID neb 12/11/16 Nebulized 0.2 MG/ML] methylPREDNISolone Dose Pack 4 mg PO DIRECTED #21 package 12/11/16 [Medrol Dose Pack] Allergies Allergy/AdvReac Type Severity Reaction Status Date / Time diltiazem [From Cardizem] Allergy Unknown Verified 11/29/22 15:14 albuterol AdvReac Rapid Verified 11/29/22 15:14 Heart Rate Review of Systems ROS Other: All systems not noted in ROS Statement are negative. <Emelia Quezada - Last Filed: 11/29/22 14:22> ROS Other: All systems not noted in ROS Statement are negative. <Mykel Toribio - Last Filed: 11/29/22 16:59> ROS Statement: Those systems with pertinent positive or pertinent negative responses have been documented in the HPI. Past Medical History Past Medical History: Coronary Artery Disease (CAD), COPD, GERD/Reflux, Hyperlipidemia, Hypertension, Thyroid Disorder Additional Past Medical History / Comment(s): COPD, coronary artery disease, abdominal aortic aneurysm repair, breast cancer with previous right partial mastectomy followed by radiation therapy and thousand and 6, chronic atrial fibrillation maintained on long-term anticoagulation with warfarin, macular degeneration, chronic sinus disease, History of Any Multi-Drug Resistant Organisms: None Reported Past Surgical History: Cholecystectomy, Hysterectomy, Tubal Ligation Additional Past Surgical History / Comment(s): triple A repair 2007, Right breast lumpectomy, Past Anesthesia/Blood Transfusion Reactions: No Reported Reaction Past Psychological History: No Psychological Hx Reported Past Alcohol Use History: None Reported Past Drug Use History: None Reported - Past Family History Mother Additional Family Medical History / Comment(s): diabetic, cardiomegaly, thyroid disorders <Emelia Quezada - Last Filed: 11/29/22 14:22> General Exam <Emelia Quezada - Last Filed: 11/29/22 14:22> General appearance: alert, in no apparent distress Head exam: Present: atraumatic, normocephalic Eye exam: Present: normal appearance, PERRL ENT exam: Present: normal exam Neck exam: Present: normal inspection. Absent: tenderness Respiratory exam: Present: decreased breath sounds. Absent: respiratory distress Cardiovascular Exam: Present: normal rhythm, bradycardia GI/Abdominal exam: Present: soft. Absent: distended, tenderness Extremities exam: Present: normal inspection, normal capillary refill. Absent: pedal edema Neurological exam: Present: alert, oriented X3, CN II-XII intact. Absent: motor sensory deficit Psychiatric exam: Present: normal affect, normal mood Skin exam: Present: warm, dry, intact. Absent: cyanosis, diaphoretic <Mykel Toribio - Last Filed: 11/29/22 16:59> - General Exam Comments Initial Comments: Visual Physical Exam Vital signs reviewed General: Well-appearing, nontoxic, no acute distress. Head: Normocephalic, atraumatic Eyes: PERRLA, EOMI ENT: Airway patent Chest: Nonlabored breathing Skin: No visual rash, normal skin tone Neuro: Alert and oriented 3 Musculoskeletal: No gross abnormalities (Emelia Quezada) Course Vital Signs 11/29/22 15:09 Temperature 97.9 F Pulse Rate 54 L Respiratory 20 Rate Blood Pressure 139/79 O2 Sat by Pulse 96 Oximetry Medical Decision Making - Lab Data Result diagrams: 11/29/22 16:01 11/29/22 16:01 <Mykel Toribio - Last Filed: 11/29/22 16:59> - Medical Decision Making Was pt. sent in by a medical professional or institution (, PA, VINEYARDIST, urgent care, hospital, or intermediate...) When possible be specific @ -[No] Did you speak to anyone other than the patient for history (EMS, parent, family, police, friend...)? What history was obtained from this source @ -[patient's Did you review nursing and triage notes (agree or disagree)? Why? @ -[I reviewed and agree with nursing and triage notes] Were old charts reviewed (outside hosp., previous admission, EMS record, old EKG, old radiological studies, urgent care reports/EKG's, intermediate records)? Report findings @ -[No old charts were reviewed] Differential Diagnosis (chest pain, altered mental status, abdominal pain women, abdominal pain men, vaginal bleeding, weakness, fever, dyspnea, syncope, headache, dizziness, GI bleed, back pain, seizure, CVA, palpatations, mental health, musculoskeletal)? @ -Differential Chest Pain: Stable Angina, Unstable Angina, STEMI, NSTEMI Aortic Dissection, Pneumothorax, Musculoskeletal, Esophageal Spasm GERD, Cholecystitis, Pancreatitis, Zoster, this is not meant to be an all-inclusive list. EKG interpreted by me (3pts min.). @ -sinus bradycardia, rate 53, NH interval 187, QRS duration 94, QTC 383, no ST segment elevation. X-rays interpreted by me (1pt min.). @ -[no acute findings CT interpreted by me (1pt min.). @ -[None done] U/S interpreted by me (1pt. min.). @ -[None done] What testing was considered but not performed or refused? (CT, X-rays, U/S, labs)? Why? @ -[None] What meds were considered but not given or refused? Why? @ -[None] Did you discuss the management of the patient with other professionals (pr ofessionals i.e. , PA, VINEYARDIST, lab, RT, psych nurse, social media content specialist, retort unloader, teacher, classification officer, nurse case manager)? Give summary @ -[Dr. Bailey Was smoking cessation discussed for >3mins.? @ -[No] Was critical care preformed (if so, how long)? @ -[No] Were there social determinants of health that impacted care today? How? (Homelessness, low income, unemployed, alcoholism, drug addiction, transportation, low edu. Level, literacy, decrease access to med. care, intermediate, rehab)? @ -[No] Was there de-escalation of care discussed even if they declined (Discuss DNR or withdrawal of care, Hospice)? DNR status @ -[No] What co-morbidities impacted this encounter? (DM, HTN, Smoking, COPD, CAD, Cancer, CVA, ARF, Chemo, Hep., AIDS, mental health diagnosis, sleep apnea, morbid obesity)? @ -hypertension, atrial fibrillation, CAD Was patient admitted / discharged? Hospital course, mention meds given and route, prescriptions, significant lab abnormalities, going to OR and other pertinent info. @ -[82-year-old female with lightheadedness, weakness, bradycardia and intermittent chest discomfort. EKG shows sinus bradycardia without ST segment elevation. Patient has normal CBC, normal CMP, negative initial troponin. She will be kept in observation for stroke or headache enzymes, telemetry, cardiology consultation. Undiagnosed new problem with uncertain prognosis? @ -[No] Drug Therapy requiring intensive monitoring for toxicity (Heparin, Nitro, Insulin, Cardizem)? @ -[No] Were any procedures done? @ -[No] Diagnosis/symptom? @ -[chest pain, bradycardia. Acute, or Chronic, or Acute on Chronic? @ -[acute Uncomplicated (without systemic symptoms) or Complicated (systemic symptoms)? @ -[default] Side effects of treatment? @ -[No] Exacerbation, Progression, or Severe Exacerbation? @ -[No] Poses a threat to life or bodily function? How? (Chest pain, USA, NH, pneumonia, PE, COPD, DKA, ARF, appy, cholecystitis, CVA, Diverticulitis, Homicidal, Suicidal, threat to staff... and all critical care pts) @ -[yes, chest pain, bradycardia (Mykel Toribio) - Lab Data Lab Results 11/29/22 11/29/22 11/29/22 Range/Units 16:01 16:01 16:01 WBC 9.7 (3.8-10.6) k/uL RBC 4.57 (3.80-5.40) m/uL Hgb 13.4 (11.4-16.0) gm/dL Hct 41.1 (34.0-46.0) % MCV 90.0 (80.0-100.0) fL MCH 29.4 (25.0-35.0) pg MCHC 32.7 (31.0-37.0) g/dL RDW 12.6 (11.5-15.5) % Plt Count 214 (150-450) k/uL MPV 9.5 Neutrophils % 74 % Lymphocytes % 15 % Monocytes % 7 % Eosinophils % 2 % Basophils % 0 % Neutrophils # 7.2 (1.3-7.7) k/uL Lymphocytes # 1.5 (1.0-4.8) k/uL Monocytes # 0.7 (0-1.0) k/uL Eosinophils # 0.2 (0-0.7) k/uL Basophils # 0.0 (0-0.2) k/uL PT 22.4 H (9.0-12.0) sec INR 2.3 H (<1.2) APTT 37.8 H (22.0-30.0) sec Sodium 134 L (137-145) mmol/L Potassium 4.1 (3.5-5.1) mmol/L Chloride 93 L (98-107) mmol/L Carbon Dioxide 33 H (22-30) mmol/L Anion Gap 8 mmol/L BUN 24 H (7-17) mg/dL Creatinine 1.21 H (0.52-1.04) mg/dL Est GFR (CKD-EPI)AfAm 48 (>60 ml/min/1.73 sqM) Est GFR (CKD-EPI)NonAf 42 (>60 ml/min/1.73 sqM) Glucose 98 (74-99) mg/dL Calcium 9.3 (8.4-10.2) mg/dL Total Bilirubin 0.7 (0.2-1.3) mg/dL AST 21 (14-36) U/L ALT 17 (4-34) U/L Alkaline Phosphatase 79 (38-126) U/L Troponin I (0.000-0.034) ng/mL Total Protein 7.4 (6.3-8.2) g/dL Albumin 4.1 (3.5-5.0) g/dL 11/29/22 Range/Units 16:01 WBC (3.8-10.6) k/uL RBC (3.80-5.40) m/uL Hgb (11.4-16.0) gm/dL Hct (34.0-46.0) % MCV (80.0-100.0) fL MCH (25.0-35.0) pg MCHC (31.0-37.0) g/dL RDW (11.5-15.5) % Plt Count (150-450) k/uL MPV Neutrophils % % Lymphocytes % % Monocytes % % Eosinophils % % Basophils % % Neutrophils # (1.3-7.7) k/uL Lymphocytes # (1.0-4.8) k/uL Monocytes # (0-1.0) k/uL Eosinophils # (0-0.7) k/uL Basophils # (0-0.2) k/uL PT (9.0-12.0) sec INR (<1.2) APTT (22.0-30.0) sec Sodium (137-145) mmol/L Potassium (3.5-5.1) mmol/L Chloride (98-107) mmol/L Carbon Dioxide (22-30) mmol/L Anion Gap mmol/L BUN (7-17) mg/dL Creatinine (0.52-1.04) mg/dL Est GFR (CKD-EPI)AfAm (>60 ml/min/1.73 sqM) Est GFR (CKD-EPI)NonAf (>60 ml/min/1.73 sqM) Glucose (74-99) mg/dL Calcium (8.4-10.2) mg/dL Total Bilirubin (0.2-1.3) mg/dL AST (14-36) U/L ALT (4-34) U/L Alkaline Phosphatase (38-126) U/L Troponin I <0.012 (0.000-0.034) ng/mL Total Protein (6.3-8.2) g/dL Albumin (3.5-5.0) g/dL Disposition <Emelia Quezada - Last Filed: 11/29/22 14:22> Is patient prescribed a controlled substance at d/c from ED?: No Time of Disposition: 16:59 <Mykel Toribio - Last Filed: 11/29/22 16:59> Clinical Impression: Chest pain, Bradycardia Disposition: ADMITTED IP TO THIS HOSP Condition: Stable Referrals: Thien Aleman MD [Primary Care Provider] - 1-2 days
[2022-11-29 16:14] LABS: Basophils % (A) 0 %; Eosinophils # (A) 0.2 k/uL (0-0.7); Eosinophils % (A) 2 %; HCT 41.1 % (34.0-46.0); HGB 13.4 gm/dL (11.4-16.0); Lymphocytes # (A) 1.5 k/uL (1.0-4.8); Lymphocytes % (A) 15 %; MCH 29.4 pg (25.0-35.0); MCHC 32.7 g/dL (31.0-37.0); Mean Platelet Volume 9.5; Monocytes # (A) 0.7 k/uL (0-1.0); Monocytes % (A) 7 %; Neutrophils # (A) 7.2 k/uL (1.3-7.7); Neutrophils % (A) 74 %; Platelet Count 214 k/uL (150-450); RBC 4.57 m/uL (3.80-5.40); RDW 12.6 % (11.5-15.5); WBC 9.7 k/uL (3.8-10.6)
[2022-11-29 16:23] LABS: INR 2.3 (<1.2); Partial Thromboplastin Time 37.8 sec (22.0-30.0); Prothrombin Time 22.4 sec (9.0-12.0)
[2022-11-29 16:25] LABS: ALT 17 U/L (4-34); AST 21 U/L (14-36); African American GFR (CKD) 48 (>60 ml/min/1.73 sqM); Albumin 4.1 g/dL (3.5-5.0); Alkaline Phosphatase 79 U/L (38-126); Anion Gap 8 mmol/L; Blood Urea Nitrogen 24 mg/dL (7-17); Calcium 9.3 mg/dL (8.4-10.2); Carbon Dioxide 33 mmol/L (22-30); Chloride 93 mmol/L (98-107); Glucose 98 mg/dL (74-99); Non-African American GFR(CKD) 42 (>60 ml/min/1.73 sqM); Potassium 4.1 mmol/L (3.5-5.1); Sodium 134 mmol/L (137-145); Total Bilirubin 0.7 mg/dL (0.2-1.3); Total Protein 7.4 g/dL (6.3-8.2)
--- NOTE | 2022-11-29 16:35 | XR ---
EXAMINATION TYPE: XR chest 2V DATE OF EXAM: 11/29/2022 4:26 PM COMPARISON: Chest radiographs from 12/11/2016, CTA thoracoabdominal pelvis aorta 10/16/2016. TECHNIQUE: XR chest 2V Frontal and lateral views of the chest. CLINICAL INDICATION:Female, 82 years old with history of isai; FINDINGS: Lungs/Pleura: There is no evidence of pleural effusion, focal consolidation, or pneumothorax. Hyperi nflation with increased AP diameter. Pulmonary vascularity: Unremarkable. Heart/mediastinum: Cardiomediastinal silhouette is unremarkable. Musculoskeletal: Multiple level degenerative disc disease changes seen throughout the spine. Increase d thoracic kyphosis redemonstrated with increased chronic appearing anterior wedge compression of the lower thoracic spine. Other: Surgical clips within the right upper quadrant. 1.9 cm dystrophic calcification within the rig ht breast corresponds to prior CT. IMPRESSION: Chronic changes without evidence for acute process.
[2022-11-29] MEDS ORDERED: NALOXONE 0.4 MG/ML 1 ML VIAL IV PRN (16:59)
[2022-11-29] MEDS ORDERED: WARFARIN 2 MG TAB PO SCH (21:00)
[2022-11-29] MEDS: GABAPENTIN 300 MG CAP PO SCH (21:20)
[2022-11-29] MEDS: MAGNESIUM OXIDE 400 MG TAB PO SCH (21:20)
[2022-11-29] MEDS: ATORVASTATIN 20 MG TAB PO SCH (21:20)
[2022-11-29] MEDS: CALCIUM CARBONATE 500 MG CHEWABLE PO SCH (21:24)
[2022-11-29] MEDS ORDERED: LACTULOSE 20 GM/30 ML CUP PO PRN (21:34)
[2022-11-29] MEDS ORDERED: ONDANSETRON 4 MG/2 ML VIAL IVP PRN (21:34)
[2022-11-29] MEDS ORDERED: LORazepam 0.5 MG TAB PO PRN (21:34)
[2022-11-29] MEDS ORDERED: ACETAMINOPHEN TAB 325 MG TAB PO PRN (21:34)
[2022-11-29] MEDS ORDERED: MELATONIN 3 MG TABLET PO PRN (21:34)
--- NOTE | 2022-11-29 21:34 | P.HPIM ---
History of Present Illness H&P Date: 11/29/22 Chief Complaint: Decreased outright This is a pleasant 82-year-old patient, follows with Dr. Aleman. Aortic stable medical conditions include GERD, hypertension, hyperlipidemia, hypothyroid, COPD in a previous smoker, abdominal aortic aneurysm repair, breast cancer with previous right partial mastectomy followed by radiation, chronic atrial fibrillation on Coumadin, macular degeneration, chronic sinus disease. Patient oral week ago was short of breath went to the [facility]. Patient was given bronchodilators. Heart rate became fast. He then given some beta flora. Patient today notice a heart rate to be close to 50. Appetite has been down feeling a bit dizzy. Does use a walker and a baseline. Patient does state about 2-1/2 L of oxygen at home. Review of systems: GEN.: Tired EYES: None HEENT: None NECK: None RESPIRATORY: None CARDIOVASCULAR: None GASTROINTESTINAL: None GENITOURINARY: None MUSCULOSKELETAL: Joint pains LYMPHATICS: None HEMATOLOGICAL: None PSYCHIATRY: None NEUROLOGICAL: None Past medical history to include: COPD ex-smoker, GERD, hypertension, hyperlipidemia, hypothyroid, abdominal aortic aneurysm repair, breast cancer with previous right partial mastectomy followed by radiation, chronic atrial fibrillation, macular degeneration, c hronic sinus disease. Home oxygen 2-1/2 L Social history: Patient smoked for about 40 years more than a pack a day. Stop closer 20 years ago. No alcohol. Lives with her . Physical examination: VITAL SIGNS: 97.9, 54, 20, 07/18/1978, 96% on 2 L GENERAL: BMI 26.1, reclining went away comfortable. EYES: Pupils equal. Conjunctiva normal. HEENT: External appearance of nose and ears normal, oral cavity grossly normal. NECK: JVD not raised; masses not palpable. HEART: First and second heart sounds are normal; no edema. LUNGS: Respiratory rate normal; decreased breath sounds. ABDOMEN: Soft, nontender, liver spleen not palpable, no masses palpable. PSYCH: Alert and oriented x3; mood and affect normal. MUSCULOSKELETAL:No Clubbing/cyanosis;muscles-grossly intact. OA NEUROLOGICAL: Cranial nerves grossly intact; no facial asymmetry, power and sensation grossly intact. LYMPHATICS: No lymph nodes palpable in the axilla and neck INVESTIGATIONS, reviewed in the clinical context: White count 9.7 hemoglobin 34.4 patient has 214 INR 2.3 sodium 134 potassium 4.1 BUN 24 creatinine 1.21 Troponin I 2 less than 0.012 Chest x-ray film personally reviewed by me: Hyperinflation Assessment and plan: -Bradycardia likely from digoxin in the setting of renal function abnormal cr eatinine of 1.21 Hold digoxin. -COPD in a previous smoker Bronchodilators. Add -Essential hypertension Amlodipine -Paroxysmal atrial fibrillation, currently sinus rhythm Coumadin monitoring -Hyperlipidemia Zocor GERD Prilosec -Hypothyroid Synthroid 125 g daily Medications above. Cartilage E consulted. Telemetry. Past Medical History Past Medical History: Coronary Artery Disease (CAD), COPD, GERD/Reflux, Hyperlipidemia, Hypertension, Thyroid Disorder Additional Past Medical History / Comment(s): COPD, coronary artery disease, abdominal aortic aneurysm repair, breast cancer with previous right partial mastectomy followed by radiation therapy and thousand and 6, chronic atrial fibrillation maintained on long-term anticoagulation with warfarin, macular degeneration, chronic sinus disease, History of Any Multi-Drug Resistant Organisms: None Reported Past Surgical History: Cholecystectomy, Hysterectomy, Tubal Ligation Additional Past Surgical History / Comment(s): triple A repair 2007, Right breast lumpectomy, Past Anesthesia/Blood Transfusion Reactions: No Reported Reaction Past Psychological History: No Psychological Hx Reported Smoking Status: Never smoker Past Alcohol Use History: None Reported Past Drug Use History: None Reported - Past Family History Mother Additional Family Medical History / Comment(s): diabetic, cardiomegaly, thyroid disorders Medications and Allergies Home Medications Medication Instructions Recorded Confirmed Type Gabapentin [Neurontin] 600 mg PO TID 07/27/14 11/29/22 History Simvastatin [Zocor] 40 mg PO HS 07/27/14 11/29/22 History Digoxin [Lanoxin] 62.5 mcg PO DAILY 10/16/16 11/29/22 History Nitroglycerin Sl Tabs [Nitrostat] 0.4 mg SUBLINGUAL Q5M PRN 10/16/16 11/29/22 History [place]-3 Fatty Acids/Fish Oil [Fish 1 cap PO BID 10/16/16 11/29/22 History Oil 1,000 mg Softgel] Vits A,C,E/Lutein/Minerals 1 tab PO BID 10/16/16 11/29/22 History [Ocuvite with Lutein Tablet] Warfarin Sodium [Coumadin] 4 mg PO SUMOTUTHSA@1800 10/16/16 11/29/22 History Warfarin Sodium [Coumadin] 6 mg PO WEFR@1800 10/16/16 11/29/22 History amLODIPine [Norvasc] 10 mg PO DAILY 12/08/16 11/29/22 History Calcium Carbonate [Calcium] 600 mg PO TID 11/29/22 11/29/22 History Ipratropium Nebulized [Atrovent 0.5 mg INHALATION RT-BID 11/29/22 11/29/22 History Nebulized 0.2 MG/ML] L.acidoph,Paracasei, B.lactis 1 cap PO DAILY 11/29/22 11/29/22 History [Probiotic] Levothyroxine Sodium [Synthroid] 125 mcg PO DAILY 11/29/22 11/29/22 History Magnesium Oxide [Mag-Ox] 400 mg PO BID 11/29/22 11/29/22 History Omeprazole [PriLOSEC] 20 mg PO DAILY 11/29/22 11/29/22 History Potassium Chloride ER [K-Dur 10] 10 meq PO DAILY 11/29/22 11/29/22 History Urea 20% Cream 1 applic TOPICAL HS 11/29/22 11/29/22 History Allergies Allergy/AdvReac Type Severity Reaction Status Date / Time diltiazem [From Cardizem] Allergy Unknown Verified 11/29/22 18:22 albuterol AdvReac Rapid Verified 11/29/22 18:22 Heart Rate Physical Exam Vitals: Vital Signs Temp Pulse Resp BP Pulse Ox 11/29/22 20:00 53 L 18 138/75 97 11/29/22 19:30 53 L 17 140/73 96 11/29/22 19:00 56 L 18 143/72 96 11/29/22 18:30 53 L 16 135/66 98 11/29/22 18:00 54 L 17 139/73 97 11/29/22 17:30 52 L 18 158/82 97 11/29/22 17:00 53 L 18 134/97 97 11/29/22 16:30 54 L 18 146/78 98 11/29/22 15:09 97.9 F 54 L 20 139/79 96 Intake and Output 11/29/22 11/29/22 11/29/22 06:59 14:59 22:59 Other: Weight 71.214 kg Results CBC & Chem 7: 11/29/22 16:01 06/13/23 16:01 Labs: Abnormal Lab Results - Last 24 Hours (Table) 11/29/22 11/29/22 Range/Units 16:01 16:01 PT 22.4 H (9.0-12.0) sec INR 2.3 H (<1.2) APTT 37.8 H (22.0-30.0) sec Sodium 134 L (137-145) mmol/L Chloride 93 L (98-107) mmol/L Carbon Dioxide 33 H (22-30) mmol/L BUN 24 H (7-17) mg/dL Creatinine 1.21 H (0.52-1.04) mg/dL
[2022-11-30] MEDS: PANTOPRAZOLE 40 MG TABLET PO SCH ×2 (05:54→08:42)
[2022-11-30] MEDS: LEVOTHYROXINE 125 MCG TAB PO SCH (05:54)
[2022-11-30 06:05] LABS: Prothrombin Time 19.3 sec (9.0-12.0)
[2022-11-30] MEDS: IPRATROPIUM 0.5 MG/2.5 ML NEBU INHALATION SCH ×2 (07:50→21:19)
[2022-11-30] MEDS: amLODIPine 5 MG TAB PO SCH (08:42)
[2022-11-30] MEDS: CALCIUM CARBONATE 500 MG CHEWABLE PO SCH ×3 (08:42→20:34)
[2022-11-30] MEDS: MAGNESIUM OXIDE 400 MG TAB PO SCH ×2 (08:42→20:34)
[2022-11-30] MEDS: GABAPENTIN 300 MG CAP PO SCH ×3 (08:47→20:34)
[2022-11-30] MEDS ORDERED: NON FORMULARY DRUG (Omeprazole 20 MG Capsule.Dr) PO SCH (09:00)
[2022-11-30] MEDS ORDERED: PANTOPRAZOLE 40 MG/10 ML VIAL IV SCH (09:00)
[2022-11-30] MEDS ORDERED: amLODIPine 10 MG TAB PO SCH (09:00)
[2022-11-30] MEDS: LACTOBACILLUS ACIDOPH & BULGAR 1 EACH PACKET PO SCH (10:08)
--- NOTE | 2022-11-30 10:41 | P.CRDCN ---
History of Present Illness Consult date: 11/30/22 Consult reason: chest pain (Bradycardia) History of present illness: History of present illness: This is an 82 year old female patient of Dr. Dinah Ty with past medical history of paroxysmal atrial fibrillation on Coumadin, hypertension, dyslipidemia, status post AAA repair, remote history of tobacco use and quit in 2003. Patient states that her problems all started with shortness of breath for about 2 weeks. She started a new nebulizer or inhaler and developed rapid heartbeat up to the 160s and went to [facility] where she received one dose of Tenormin 50 mg, one dose of Lanoxin 0.125 g and Lopressor 5 mg IV push. She was then discharged with no med changes. She is on digoxin at half a tablet of 0.125 g of digoxin daily. Patient states that she had called the metal fitters and machinists's office and is requested to change her physician to Dr. Clemente and is waiting to hear back from the office. Patient states she was told by her primary care doctor that she should come into the hospital instead of waiting to see a metal fitters and machinists in the office. She then came in to [facility] because she was a little short of breath was having heartburn and a funny sensation in her chest. Heart rate was in the 50s when she checked it with her home pulse ox machine. She states she did have some shortness of breath and she couldn't feel her heart beating in her ears but it was slow. Regarding chest pain, patient states it felt like heartburn and was relieved with antacid but after that she still had a funny sensation in the upper anterior chest area. No tenderness with palpation and no change with activity or movement. EKG sinus rhythm at 53 bpm Chest x-ray: chronic changes without evidence of acute findings CBC normal. INR 2.3. Sodium 134, potassium 4.1, chloride 93, CO2 33, BUN 24 and creatinine 1.21. Liver function tests were normal. Troponin negative 3. TSH 4.530. Home cardiac medications: amlodipine 10 mg daily, digoxin 125 g half a tablet daily, fish oil daily, Lasix 40 mg daily, potassium chloride 10 mEq daily, simvastatin 40 mg daily, Coumadin, Slow-Mag, levothyroxine 125 g daily. Echocardiogram 01/2020 revealed EF of 55%, mild mitral regurgitation, mild tricuspid regurgitation Persantine stress test 2014 was unremarkable. Review Of Systems: At the time of my evaluation: Constitutional: No fever, no chills. No weakness, fatigue or lethargy. EENT: No headache. No dizziness. Lungs: Mild shortness of breath, cough, no sputum production. No wheezing. Cardiovascular: No chest pain, no lower extremity edema. No palpitations. No paroxysmal nocturnal dyspnea. No orthopnea. No lightheadedness or dizziness. No syncopal episodes. Abdominal: No abdominal pain. No nausea, vomiting. No diarrhea. No constipation. No bloody or tarry stools. Genitourinary: No dysuria.. No urinary retention. Musculoskeletal: No myalgias. No muscle weakness, no frequent falls. No back pain. No neck pain. Integumentary: No wounds. No rash. No unusual bruising. Neurologic: No aphasia. No facial droop. No change in mentation. No head injury. No headache. Physical examination: Gen: This is an 82-year-old female. She is resting in bed and appears to be comfortable and in no acute distress.reviewed HEENT: Head is atraumatic, normocephalic. Pupils equal, round. Sclerae is ani cteric. NECK: Supple. No JVD. . LUNGS: Clear to auscultation. No wheezes or rhonchi. No intercostal retractions. HEART: Regular rate and rhythm. No murmur. ABDOMEN: Soft No tenderness. EXTREMITIES: No pedal edema. No calf tenderness. NEUROLOGICAL: Patient is awake, alert and oriented x3. Assessment: Paroxysmal atrial fibrillation currently in sinus rhythm Hypertension Dyslipidemia History of AAA repair in Remote history of tobacco use Plan: Discontinue digoxin Obtain digoxin level Obtain 2-D echocardiogram and Doppler study to assess cardiac structure and function Ambulate patient If she is asymptomatic with ambulation and echocardiogram is unremarkable, patient is cleared for discharge home and may follow-up in the office in one week. Thank you kindly for this consultation. Nurse practitioner note has been reviewed, I agree with documented findings and plan of care. Patient was seen and examined. Past Medical History Past Medical History: Coronary Artery Disease (CAD), COPD, GERD/Reflux, Hyperlipidemia, Hypertension, Thyroid Disorder Additional Past Medical History / Comment(s): COPD, coronary artery disease, abdominal aortic aneurysm repair, breast cancer with previous right partial mastectomy followed by radiation therapy and thousand and 6, chronic atrial fibrillation maintained on long-term anticoagulation with warfarin, macular degeneration, chronic sinus disease, History of Any Multi-Drug Resistant Organisms: None Reported Past Surgical History: Cholecystectomy, Hysterectomy, Tubal Ligation Additional Past Surgical History / Comment(s): triple A repair 2007, Right breast lumpectomy, Past Anesthesia/Blood Transfusion Reactions: No Reported Reaction Past Psychological History: No Psychological Hx Reported Smoking Status: Former smoker Past Alcohol Use History: None Reported Past Drug Use History: None Reported - Past Family History Mother Additional Family Medical History / Comment(s): diabetic, cardiomegaly, thyroid disorders Medications and Allergies Home Medications Medication Instructions Recorded Confirmed Type Gabapentin [Neurontin] 600 mg PO TID 07/27/14 11/29/22 History Simvastatin [Zocor] 40 mg PO HS 07/27/14 11/29/22 History Digoxin [Lanoxin] 62.5 mcg PO DAILY 10/16/16 11/29/22 History Nitroglycerin Sl Tabs [Nitrostat] 0.4 mg SUBLINGUAL Q5M PRN 10/16/16 11/29/22 History [place]-3 Fatty Acids/Fish Oil [Fish 1 cap PO BID 10/16/16 11/29/22 History Oil 1,000 mg Softgel] Vits A,C,E/Lutein/Minerals 1 tab PO BID 10/16/16 11/29/22 History [Ocuvite with Lutein Tablet] Warfarin Sodium [Coumadin] 4 mg PO SUMOTUTHSA@1800 10/16/16 11/29/22 History Warfarin Sodium [Coumadin] 6 mg PO WEFR@1800 10/16/16 11/29/22 History amLODIPine [Norvasc] 10 mg PO DAILY 12/08/16 11/29/22 History Calcium Carbonate [Calcium] 600 mg PO TID 11/29/22 11/29/22 History Ipratropium Nebulized [Atrovent 0.5 mg INHALATION RT-BID 11/29/22 11/29/22 History Nebulized 0.2 MG/ML] L.acidoph,Paracasei, B.lactis 1 cap PO DAILY 11/29/22 11/29/22 History [Probiotic] Levothyroxine Sodium [Synthroid] 125 mcg PO DAILY 11/29/22 11/29/22 History Magnesium Oxide [Mag-Ox] 400 mg PO BID 11/29/22 11/29/22 History Omeprazole [PriLOSEC] 20 mg PO DAILY 11/29/22 11/29/22 History Potassium Chloride ER [K-Dur 10] 10 meq PO DAILY 11/29/22 11/29/22 History Urea 20% Cream 1 applic TOPICAL HS 11/29/22 11/29/22 History Allergies Allergy/AdvReac Type Severity Reaction Status Date / Time diltiazem [From Cardizem] Allergy Unknown Verified 11/29/22 18:22 albuterol AdvReac Rapid Verified 11/29/22 18:22 Heart Rate Physical Exam Vitals: Vital Signs Temp Pulse Pulse Pulse Resp BP BP 11/30/22 07:00 98.6 F 57 L 16 11/30/22 02:38 98.6 F 50 L 16 119/69 11/29/22 22:17 98.1 F 55 L 16 148/69 11/29/22 21:44 97.4 F L 53 L 18 111/55 11/29/22 21:23 55 L 18 143/65 11/29/22 20:00 53 L 18 138/75 11/29/22 19:30 53 L 17 140/73 11/29/22 19:00 56 L 18 143/72 11/29/22 18:30 53 L 16 135/66 11/29/22 18:00 54 L 17 139/73 11/29/22 17:30 52 L 18 158/82 11/29/22 17:00 53 L 18 134/97 11/29/22 16:30 54 L 18 146/78 11/29/22 15:09 97.9 F 54 L 20 139/79 BP Pulse Ox 11/30/22 07:00 126/68 94 L 11/30/22 02:38 96 11/29/22 22:17 94 L 11/29/22 21:44 96 11/29/22 21:23 97 11/29/22 20:00 97 11/29/22 19:30 96 11/29/22 19:00 96 11/29/22 18:30 98 11/29/22 18:00 97 11/29/22 17:30 97 11/29/22 17:00 97 11/29/22 16:30 98 11/29/22 15:09 96 Intake and Output 06/11/30/22 11/30/22 22:59 06:59 14:59 Other: Voiding Method Toilet # Voids 1 Weight 71.214 kg Results 11/29/22 16:01 11/29/22 16:01 Cardiac Enzymes 11/29/22 11/29/22 11/29/22 Range/Units 16:01 16:01 19:10 AST 21 (14-36) U/L Troponin I <0.012 <0.012 (0.000-0.034) ng/mL 11/29/22 Range/Units 22:00 AST (14-36) U/L Troponin I <0.012 (0.000-0.034) ng/mL Coagulation 11/29/22 11/30/22 Range/Units 16:01 05:24 PT 22.4 H 19.3 H (9.0-12.0) sec APTT 37.8 H (22.0-30.0) sec CBC 11/29/22 Range/Units 16:01 WBC 9.7 (3.8-10.6) k/uL RBC 4.57 (3.80-5.40) m/uL Hgb 13.4 (11.4-16.0) gm/dL Hct 41.1 (34.0-46.0) % Plt Count 214 (150-450) k/uL Comprehensive Metabolic Panel 11/29/22 Range/Units 16:01 Sodium 134 L (137-145) mmol/L Potassium 4.1 (3.5-5.1) mmol/L Chloride 93 L (98-107) mmol/L Carbon Dioxide 33 H (22-30) mmol/L BUN 24 H (7-17) mg/dL Creatinine 1.21 H (0.52-1.04) mg/dL Glucose 98 (74-99) mg/dL Calcium 9.3 (8.4-10.2) mg/dL AST 21 (14-36) U/L ALT 17 (4-34) U/L Alkaline Phosphatase 79 (38-126) U/L Total Protein 7.4 (6.3-8.2) g/dL Albumin 4.1 (3.5-5.0) g/dL Current Medications Generic Name Dose Route Start Last Admin Trade Name Freq PRN Reason Stop Dose Admin Acetaminophen 650 mg 11/29/22 21:34 Acetaminophen Tab 325 Mg Tab PO Q6HR PRN Mild Pain or Fever > 100.5 Amlodipine Besylate 5 mg 11/30/22 09:00 Amlodipine 5 Mg Tab PO DAILY ETHAN Atorvastatin Calcium 20 mg 11/29/22 21:00 11/29/22 21:20 Atorvastatin 20 Mg Tab PO 20 mg HS ETHAN Administration Calcium Carbonate/Glycine 500 mg 11/29/22 22:00 11/29/22 21:24 Calcium Carbonate 500 Mg Chewable PO 500 mg TID ETHAN Administration Gabapentin 600 mg 11/29/22 22:00 11/29/22 21:20 Gabapentin 300 Mg Cap PO 600 mg TID ETHAN Administration Ipratropium Purdin 0.5 mg 11/30/22 08:00 11/30/22 07:50 Ipratropium 0.5 Mg/2.5 Ml Nebu INHALATION 0.5 mg RT-BID ETHAN Administration Lactobacillus Acidoph/Bulgaricus 1 each 11/30/22 09:00 Lactobacillus Acidoph & Bulgar 1 Each Packet PO DAILY ETHAN Lactulose 20 gm 11/29/22 21:34 Lactulose 20 Gm/30 Ml Cup PO DAILY PRN Constipation Levothyroxine Sodium 125 mcg 11/30/22 06:30 11/30/22 05:54 Levothyroxine 125 Mcg Tab PO 125 mcg 0630 ETHAN Administration Lorazepam 0.5 mg 11/29/22 21:34 Lorazepam 0.5 Mg Tab PO Q6HR PRN Anxiety Magnesium Oxide 400 mg 11/29/22 21:00 11/29/22 21:20 Magnesium Oxide 400 Mg Tab PO 400 mg BID ETHAN Administration Melatonin 3 mg 11/29/22 21:34 Melatonin 3 Mg Tablet PO HS PRN Insomnia Miscellaneous Information 0 each 11/29/22 21:00 Warfarin Per Pharmacy MISCELLANE DIRECTED PRN ANTICOAG Naloxone HCl 0.2 mg 11/29/22 16:59 Naloxone 0.4 Mg/Ml 1 Ml Vial IV Q2M PRN Opioid Reversal Ondansetron HCl 4 mg 11/29/22 21:34 Ondansetron 4 Mg/2 Ml Vial IVP Q8HR PRN Nausea And Vomiting Pantoprazole Sodium 40 mg 11/30/22 07:30 Pantoprazole 40 Mg Tablet PO AC-BRKFST [facility] Warfarin Sodium 4 mg 11/29/22 21:00 11/29/22 21:20 Warfarin 2 Mg Tab PO 4 mg SUMOTUTHSA@1800 [facility] Administration Warfarin Sodium 6 mg 11/30/22 18:00 Warfarin 3 Mg Tab PO WEFR@1800 [facility] Intake and Output 11/29/22 11/30/22 11/30/22 22:59 06:59 14:59 Other: Voiding Method Toilet # Voids 1 Weight 71.214 kg 11/29/22 16:01 11/29/22 16:01
--- NOTE | 2022-11-30 17:33 | P.PN ---
Progress Note - Text Progress Note Date: 11/30/22 Chief Complaint: Decreased outright This is a pleasant 82-year-old patient, follows with Dr. Aleman. Aortic stable medical conditions include GERD, hypertension, hyperlipidemia, hypothyroid, COPD in a previous smoker, abdominal aortic aneurysm repair, breast cancer with previous right partial mastectomy followed by radiation, chronic atrial fibrillation on Coumadin, macular degeneration, chronic sinus disease. Patient oral week ago was short of breath went to the [place] [facility]. Patient was given bronchodilators. Heart rate became fast. He then given some beta flora. Patient today notice a heart rate to be close to 50. Appetite has been down feeling a bit dizzy. Does use a walker and a baseline. Patient does state about 2-1/2 L of oxygen at home. November 30: Tired. Heart rate in the 50s. Digoxin was held. 2-D echocardiogram done today. Results pending. Active Medications Acetaminophen (Acetaminophen Tab 325 Mg Tab) 650 mg PO Q6HR PRN PRN Reason: Mild Pain or Fever > 100.5 Amlodipine Besylate (Amlodipine 5 Mg Tab) 5 mg PO DAILY [facility] Last Admin: 11/30/22 08:42 Dose: 5 mg Atorvastatin Calcium (Atorvastatin 20 Mg Tab) 20 mg PO HS [facility] Last Admin: 11/29/22 21:20 Dose: 20 mg Calcium Carbonate/Glycine (Calcium Carbonate 500 Mg Chewable) 500 mg PO TID [facility] Last Admin: 11/30/22 17:08 Dose: 500 mg Gabapentin (Gabapentin 300 Mg Cap) 600 mg PO TID [facility] Last Admin: 11/30/22 17:08 Dose: 600 mg Ipratropium [place] (Ipratropium 0.5 Mg/2.5 Ml Nebu) 0.5 mg INHALATION RT-BID [facility] Last Admin: 11/30/22 07:50 Dose: 0.5 mg Lactobacillus Acidoph/Bulgaricus (Lactobacillus Acidoph & Bulgar 1 Each Packet) 1 each PO DAILY [facility] Last Admin: 11/30/22 10:08 Dose: Not Given Lactulose (Lactulose 20 Gm/30 Ml Cup) 20 gm PO DAILY PRN PRN Reason: Constipation Levothyroxine Sodium (Levothyroxine 125 Mcg Tab) 125 mcg PO 0630 [facility] Last Admin: 11/30/22 05:54 Dose: 125 mcg Lorazepam (Lorazepam 0.5 Mg Tab) 0.5 mg PO Q6HR PRN PRN Reason: Anxiety Magnesium Oxide (Magnesium Oxide 400 Mg Tab) 400 mg PO BID [facility] Last Admin: 11/30/22 08:42 Dose: 400 mg Melatonin (Melatonin 3 Mg Tablet) 3 mg PO HS PRN PRN Reason: Insomnia Miscellaneous Information (Warfarin Per Pharmacy) 0 each MISCELLANE DIRECTED PRN PRN Reason: ANTICOAG Naloxone HCl (Naloxone 0.4 Mg/Ml 1 Ml Vial) 0.2 mg IV Q2M PRN PRN Reason: Opioid Reversal Ondansetron HCl (Ondansetron 4 Mg/2 Ml Vial) 4 mg IVP Q8HR PRN PRN Reason: Nausea And Vomiting Pantoprazole Sodium (Pantoprazole 40 Mg Tablet) 40 mg PO AC-BRKFST [facility] Last Admin: 11/30/22 08:42 Dose: 40 mg Warfarin Sodium (Warfarin 2 Mg Tab) 4 mg PO SUMOTUTHSA@1800 [facility] Last Admin: 11/29/22 21:20 Dose: 4 mg Warfarin Sodium (Warfarin 3 Mg Tab) 6 mg PO WEFR@1800 [facility] Last Admin: 11/30/22 17:08 Dose: 6 mg Past medical history to include: COPD ex-smoker, GERD, hypertension, hyperlipidemia, hypothyroid, abdominal aortic aneurysm repair, breast cancer with previous right partial mastectomy followed by radiation, chronic atrial fibrillation, macular degeneration, chronic sinus disease. Home oxygen 2-1/2 L Social history: Patient smoked for about 40 years more than a pack a day. Stop closer 20 years ago. No alcohol. Lives with her . Physical examination: VITAL SIGNS: 97.5, 59, 22, 163 with 75, 94% on 2 L GENERAL: BMI 26.1, sitting at the edge of the bed, comfortable EYES: Pupils equal. Conjunctiva normal. HEENT: External appearance of nose and ears normal, oral cavity grossly normal. NECK: JVD not raised; masses not palpable. HEART: First and second heart sounds are normal; no edema. LUNGS: Respiratory rate normal; decreased breath sounds. ABDOMEN: Soft, nontender, liver spleen not palpable, no masses palpable. PSYCH: Alert and oriented x3; mood and affect normal. MUSCULOSKELETAL:No Clubbing/cyanosis;muscles-grossly intact. OA INVESTIGATIONS, reviewed in the clinical context: November 30: INR 2 TSH 4.5 digoxin 0.7 White count 9.7 hemoglobin 34.4 patient has 214 INR 2.3 sodium 134 potassium 4.1 BUN 24 creatinine 1.21 Troponin I 2 less than 0.012 Chest x-ray film personally reviewed by me: Hyperinflation Assessment and plan: -Bradycardia likely from digoxin in the setting of renal function abnormal creatinine of 1.21 Hold digoxin. -COPD in a previous smoker Bronchodilators. Add -Essential hypertension Amlodipine -Paroxysmal atrial fibrillation, currently sinus rhythm Coumadin monitoring -Hyperlipidemia Zocor GERD Prilosec -Hypothyroid Synthroid 125 g daily 2-D echo results pending. Other medications to continue.
[2022-11-30] MEDS ORDERED: SODIUM CHLORIDE 0.9% 1,000 ML IV SCH (17:45)
[2022-11-30] MEDS ORDERED: WARFARIN 3 MG TAB PO SCH (18:00)
--- NOTE | 2022-11-30 19:21 | CA ---
Transthoracic Echo Report Name: Kanchan Harvey Age: 82 Gender: F : 1940 Exam Date: 11/30/2022 13:43 Exam Location: [place] [facility] Ht (in): 65 Wt (lb): 157 Ordering Physician: Angelina Moyer Attending/Referring Phys: [id number], João Principal Biostatistician Maria De Jesus Pickett [facility] Procedure CPT: Indications: LVF Cardiac Hx: Technical Quality: Technically difficult study Contrast 1: Total Dose (mL): Contrast 2: Total Dose (mL): MEASUREMENTS (Male / Female) Normal Values DOPPLER AV Peak Velocity 213.3 cm/s AV Peak Gradient 18.2 mmHg AV Mean Velocity 142.6 cm/s AV Mean Gradient 9.4 mmHg AV Velocity Time Integral 40.8 cm LVOT Peak Velocity 122.3 cm/s LVOT Peak Gradient 6.0 mmHg LVOT Velocity Time Integral 24.3 cm Mitral E Point Velocity 64.2 cm/s Mitral A Point Velocity 106.4 cm/s Mitral E to A Ratio 0.6 MV Deceleration Time 305.0 ms LV E' Lateral Velocity 7.2 cm/s Mitral E to LV E' Lateral Ratio 8.9 LV E' Septal Velocity 7.2 cm/s Mitral E to LV E' Septal Ratio 8.9 TR Peak Velocity 222.3 cm/s TR Peak Gradient 19.8 mmHg Right Ventricular Systolic Press 24.8 mmHg FINDINGS Left Ventricle Normal left ventricular systolic function with no obvious regional wall motion abnormalities. Left ventricular ejection fraction is estimated at 55-60%.left ventricular cavity size normal. Right Ventricle Normal right ventricular size. Right Atrium Normal right atrial size. Left Atrium Normal left atrial size. Mitral Valve Structurally normal mitral valve. Mild mitral regurgitation. Aortic Valve Trileaflet aortic valve. Aortic valve sclerosis. Mild aortic regurgitation. Tricuspid Valve Structurally normal tricuspid valve. Trace tricuspid regurgitation. Pulmonic Valve Pulmonic valve not well visualized. Pericardium No pericardial effusion. Aorta Aortic root and proximal ascending aorta not well visualized. CONCLUSIONS 1. Normal left ventricular size and function 2. Mild mitral and aortic regurgitation Previewed by: Dr. Juan Mccoy MD (Electronically Signed) Final Date: 30 November 2022 19:20
[2022-11-30 19:35] VITALS: RESP 16
[2022-11-30] MEDS: ATORVASTATIN 20 MG TAB PO SCH (20:34)
[2022-12-01] MEDS: LEVOTHYROXINE 125 MCG TAB PO SCH (06:12)
[2022-12-01 06:22] LABS: INR 2.2 (<1.2)
[2022-12-01 06:29] LABS: African American GFR (CKD) 58 (>60 ml/min/1.73 sqM); Anion Gap 2 mmol/L; Blood Urea Nitrogen 20 mg/dL (7-17); Calcium 8.9 mg/dL (8.4-10.2); Carbon Dioxide 34 mmol/L (22-30); Chloride 100 mmol/L (98-107); Glucose 92 mg/dL (74-99); Non-African American GFR(CKD) 50 (>60 ml/min/1.73 sqM); Potassium 3.9 mmol/L (3.5-5.1); Sodium 136 mmol/L (137-145)
[2022-12-01 07:32] VITALS: BP 139/74; TEMP 97.4
[2022-12-01] MEDS: IPRATROPIUM 0.5 MG/2.5 ML NEBU INHALATION SCH (07:38)
[2022-12-01] MEDS: CALCIUM CARBONATE 500 MG CHEWABLE PO SCH (08:15)
[2022-12-01] MEDS: amLODIPine 5 MG TAB PO SCH (08:15)
[2022-12-01] MEDS: MAGNESIUM OXIDE 400 MG TAB PO SCH (08:15)
[2022-12-01] MEDS: LACTOBACILLUS ACIDOPH & BULGAR 1 EACH PACKET PO SCH (08:15)
[2022-12-01] MEDS: GABAPENTIN 300 MG CAP PO SCH (08:15)
[2022-12-01] MEDS: PANTOPRAZOLE 40 MG TABLET PO SCH (08:17)
--- NOTE | 2022-12-01 09:55 | P.PN ---
Subjective Progress Note Date: 12/01/22 History of present illness: This is an 82 year old female patient of Dr. Dinah Ty with past medical history of paroxysmal atrial fibrillation on Coumadin, hypertension, dyslipidemia, status post AAA repair, remote history of tobacco use and quit in 2003. Patient states that her problems all started with shortness of breath for about 2 weeks. She started a new nebulizer or inhaler and developed rapid heartbeat up to the 160s and went to [facility] where she received one dose of Tenormin 50 mg, one dose of Lanoxin 0.125 g and Lopressor 5 mg IV push. She was then discharged with no med changes. She is on digoxin at half a tablet of 0.125 g of digoxin daily. Patient states that she had called the boiler setter's office and is requested to change her physician to Dr. Clemente and is waiting to hear back from the office. Patient states she was told by her primary care doctor that she should come into the hospital instead of waiting to see a boiler setter in the office. She then came in to [facility] because she was a little short of breath was having heartburn and a funny sensation in her chest. Heart rate was in the 50s when she checked it with her home pulse ox machine. She states she did have some shortness of breath and she couldn't feel her heart beating in her ears but it was slow. Regarding chest pain, patient states it felt like heartburn and was relieved with antacid but after that she still had a funny sensation in the upper anterior chest area. No tenderness with palpation and no change with activity or movement. EKG sinus rhythm at 53 bpm Chest x-ray: chronic changes without evidence of acute findings CBC normal. INR 2.3. Sodium 134, potassium 4.1, chloride 93, CO2 33, BUN 24 and creatinine 1.21. Liver function tests were normal. Troponin negative 3. TSH 4.530. Home cardiac medications: amlodipine 10 mg daily, digoxin 125 g half a tablet daily, fish oil daily, Lasix 40 mg daily, potassium chloride 10 mEq daily, simvastatin 40 mg daily, Coumadin, Slow-Mag, levothyroxine 125 g daily. Echocardiogram 01/2020 revealed EF of 55%, mild mitral regurgitation, mild tricuspid regurgitation Persantine stress test 2014 was unremarkable. 12/01 Patient is seen today in follow-up. Echocardiogram revealed normal left ventricular size and function, mild mitral and aortic regurgitation. Reviewed results of the echocardiogram with the patient. She denies having any chest pain, chest pressure, no palpitations, no dizziness and no shortness of breath. Heart rate is in the 50s and 60s, 47 while sleeping. Blood pressure 139/74. Digoxin level 0.7. Physical examination: Gen: This is an 82-year-old female. She is resting in bed and appears to be comfortable and in no acute distress.reviewed HEENT: Head is atraumatic, normocephalic. Pupils equal, round. Sclerae is anicteric. NECK: Supple. No JVD. . LUNGS: Clear to auscultation. No wheezes or rhonchi. No intercostal retractions. HEART: Regular rate and rhythm. No murmur. ABDOMEN: Soft No tenderness. EXTREMITIES: No pedal edema. No calf tenderness. NEUROLOGICAL: Patient is awake, alert and oriented x3. Assessment: Paroxysmal atrial fibrillation currently in sinus rhythm Hypertension Dyslipidemia History of AAA repair in Remote history of tobacco use Plan: Discontinue digoxin at time of discharge Patient is cleared for discharge home and may follow-up in the office in one week. Patient is requesting follow-up appointment with Dr. Mccoy switching from Dr. Ty. Nurse practitioner note has been reviewed, I agree with documented findings and plan of care. Patient was seen and examined. Objective - Vital Signs Vital signs: Vital Signs Temp 97.4 F L 12/01/22 07:00 Pulse 66 12/01/22 07:52 Resp 16 12/01/22 07:00 BP 139/74 12/01/22 07:00 Pulse Ox 99 12/01/22 07:40 FiO2 Intake & Output 11/30/22 12/01/22 12/01/22 18:59 06:59 18:59 Intake Total 220 Balance 220 Intake: Oral 220 Other: Voiding Method Toilet Toilet # Voids 3 3 - Labs CBC & Chem 7: 11/29/22 16:01 12/01/22 05:56 Labs: Abnormal Lab Results - Last 24 Hours (Table) 12/01/22 12/01/22 Range/Units 05:56 05:56 PT 22.0 H (9.0-12.0) sec INR 2.2 H (<1.2) Sodium 136 L (137-145) mmol/L Carbon Dioxide 34 H (22-30) mmol/L BUN 20 H (7-17) mg/dL
[2022-12-01 10:34] VITALS: PULSE 55
--- NOTE | 2022-12-01 15:00 | P.DS ---
Providers Date of admission: 11/29/22 16:59 Expected date of discharge: 12/01/22 Attending physician: Santosh Bailey Consults: 11/29/22 16:59 Consult Physician Routine Consulting Provider: Mark Anthony Ty Consult Reason/Comments: CP/bradycardia Do you want consulting provider notified?: Yes Primary care physician: [facility] Course: Chief Complaint: Decreased outright This is a pleasant 82-year-old patient, follows with Dr. Aleman. Aortic stable medical conditions include GERD, hypertension, hyperlipidemia, hypothyroid, COPD in a previous smoker, abdominal aortic aneurysm repair, breast cancer with previous right partial mastectomy followed by radiation, chronic atrial fibrillation on Coumadin, macular degeneration, chronic sinus disease. Patient oral week ago was short of breath went to the [facility]. Patient was given bronchodilators. Heart rate became fast. He then given some beta flora. Patient today notice a heart rate to be close to 50. Appetite has been down feeling a bit dizzy. Does use a walker and a baseline. Patient does state about 2-1/2 L of oxygen at home. November 30: Tired. Heart rate in the 50s. Digoxin was held. 2-D echocardiogram done today. Results pending. December 01: Doing well. Digoxin discontinued. 2-D echocardiogram results reviewed. Discussed. Stable for DC. Amlodipine cutback to 5 mg. Past medical history to include: COPD ex-smoker, GERD, hypertension, hyperlipidemia, hypothyroid, abdominal aortic aneurysm repair, breast cancer with previous right partial mastectomy followed by radiation, chronic atrial fibrillation, macular degeneration, chronic sinus disease. Home oxygen 2-1/2 L Social history: Patient smoked for about 40 years more than a pack a day. Stop closer 20 years ago. No alcohol. Lives with her . Physical examination: VITAL SIGNS: 97.4, 55, 16, 139/74, 99% on 2 L GENERAL: BMI 26.1, reclining, comfortable EYES: Pupils equal. Conjunctiva normal. HEENT: External appearance of nose and ears normal, oral cavity grossly normal. NECK: JVD not raised; masses not palpable. HEART: First and second heart sounds are normal; no edema. LUNGS: Respiratory rate normal; decreased breath sounds. ABDOMEN: Soft, nontender, liver spleen not palpable, no masses palpable. PSYCH: Alert and oriented x3; mood and affect normal. MUSCULOSKELETAL:No Clubbing/cyanosis;muscles-grossly intact. OA INVESTIGATIONS, reviewed in the clinical context: 2-D echocardiogram: EF 55-60%. December 01: INR 2.2 potassium 3.9 creatinine 1.04 November 30: INR 2 TSH 4.5 digoxin 0.7 White count 9.7 hemoglobin 34.4 patient has 214 INR 2.3 sodium 134 potassium 4.1 BUN 24 creatinine 1.21 Troponin I 2 less than 0.012 Chest x-ray film personally reviewed by me: Hyperinflation Assessment and plan: -Bradycardia likely from digoxin in the setting of renal function abnormal creatinine of 1.21 Digoxin discontinued -COPD in a previous smoker Bronchodilators. -Essential hypertension Amlodipine cutback to 5 mg. -Paroxysmal atrial fibrillation, currently sinus rhythm Coumadin monitoring -Hyperlipidemia v GERD Prilosec -Hypothyroid Synthroid 125 g daily 2-D echo results pending. Other medications to continue. Patient Condition at Discharge: Stable Plan - Discharge Summary Discharge Rx Participant: No New Discharge Prescriptions: New Atorvastatin [Lipitor] 20 mg PO HS #30 tab amLODIPine [Norvasc] 5 mg PO DAILY #30 tab Continue Gabapentin [Neurontin] 600 mg PO TID Vits A,C,E/Lutein/Minerals [Ocuvite with Lutein Tablet] 1 tab PO BID [place]-3 Fatty Acids/Fish Oil [Fish Oil 1,000 mg Softgel] 1 cap PO BID Warfarin Sodium [Coumadin] 4 mg PO SUMOTUTHSA@1800 Warfarin Sodium [Coumadin] 6 mg PO WEFR@1800 Nitroglycerin Sl Tabs [Nitrostat] 0.4 mg SUBLINGUAL Q5M PRN PRN Reason: Chest Pain Ipratropium Nebulized [Atrovent Nebulized 0.2 MG/ML] 0.5 mg INHALATION RT-BID Omeprazole [PriLOSEC] 20 mg PO DAILY Magnesium Oxide [Mag-Ox] 400 mg PO BID L.acidoph,Paracasei, B.lactis [Probiotic] 1 cap PO DAILY Levothyroxine Sodium [Synthroid] 125 mcg PO DAILY Urea 20% Cream 1 applic TOPICAL HS Calcium Carbonate [Calcium] 600 mg PO TID Discontinued Simvastatin [Zocor] 40 mg PO HS Digoxin [Lanoxin] 62.5 mcg PO DAILY amLODIPine [Norvasc] 10 mg PO DAILY Potassium Chloride ER [K-Dur 10] 10 meq PO DAILY Discharge Medication List Gabapentin [Neurontin] 600 mg PO TID 07/27/14 [History] Nitroglycerin Sl Tabs [Nitrostat] 0.4 mg SUBLINGUAL Q5M PRN 10/16/16 [History] [place]-3 Fatty Acids/Fish Oil [Fish Oil 1,000 mg Softgel] 1 cap PO BID 10/16/16 [History] Vits A,C,E/Lutein/Minerals [Ocuvite with Lutein Tablet] 1 tab PO BID 10/16/16 [History] Warfarin Sodium [Coumadin] 4 mg PO SUMOTUTHSA@1800 10/16/16 [History] Warfarin Sodium [Coumadin] 6 mg PO WEFR@1800 10/16/16 [History] Calcium Carbonate [Calcium] 600 mg PO TID 11/29/22 [History] Ipratropium Nebulized [Atrovent Nebulized 0.2 MG/ML] 0.5 mg INHALATION RT-BID 11/29/22 [History] L.acidoph,Paracasei, B.lactis [Probiotic] 1 cap PO DAILY 11/29/22 [History] Levothyroxine Sodium [Synthroid] 125 mcg PO DAILY 11/29/22 [History] Magnesium Oxide [Mag-Ox] 400 mg PO BID 11/29/22 [History] Omeprazole [PriLOSEC] 20 mg PO DAILY 11/29/22 [History] Urea 20% Cream 1 applic TOPICAL HS 11/29/22 [History] Atorvastatin [Lipitor] 20 mg PO HS #30 tab 12/01/22 [Rx] amLODIPine [Norvasc] 5 mg PO DAILY #30 tab 12/01/22 [Rx] Follow up Appointment(s)/Referral(s): Juan Mccoy MD [STAFF PHYSICIAN] - 1 Week (Office will call with date and time of appointment.) Thien Aleman MD [Primary Care Provider] - 1-2 days Patient Instructions/Handouts: Chest Pain (GEN), Bradycardia (GEN) Discharge Disposition: HOME SELF-CARE
== END 2022-12-01 11:57 | disposition home or self-care (01) ==
LOC: EC 14:18 → 6NMEDSUR 16:59
PROVIDERS: ADMIT Hospitalist; ATTEND Hospitalist
DX: R07.89 Other chest pain (principal); R00.1 Bradycardia, unspecified; I25.10 Atherosclerotic heart disease of native coronary artery without angina pectoris; J44.9 Chronic obstructive pulmonary disease, unspecified; K21.9 Gastro-esophageal reflux disease without esophagitis; E03.9 Hypothyroidism, unspecified; H35.30 Unspecified macular degeneration; E78.5 Hyperlipidemia, unspecified; I48.0 Paroxysmal atrial fibrillation; I10 Essential (primary) hypertension; I48.20 Chronic atrial fibrillation, unspecified; I08.3 Combined rheumatic disorders of mitral, aortic and tricuspid valves; Z79.01 Long term (current) use of anticoagulants; Z79.899 Other long term (current) drug therapy; Z79.890 Hormone replacement therapy; Z85.3 Personal history of malignant neoplasm of breast; Z92.3 Personal history of irradiation; Z90.49 Acquired absence of other specified parts of digestive tract; Z90.710 Acquired absence of both cervix and uterus; Z98.51 Tubal ligation status; Z83.3 Family history of diabetes mellitus; Z82.49 Family history of ischemic heart disease and other diseases of the circulatory system; Z83.49 Family history of other endocrine, nutritional and metabolic diseases; Z87.891 Personal history of nicotine dependence
CPT/HCPCS: 99285; 36415; 94640 ×3; 94760 ×2; 93005; 93306; 80053; 80048; 84443; 80162; 84484; 85025; 85610 ×3; 85730; 71046; G0378 ×3